=== PATIENT | male | born 1960 | race Caucasian/White ===

== ENCOUNTER → 2017-06-30 | Outpatient (CLI) | payer MEDICARE, MEDICAID, SELFPAY | PROVIDERS: Family Provider Family Medicine; Visit Provider Internal Medicine | DX: I11.9 Hypertensive heart disease without heart failure (principal); I25.10 Atherosclerotic heart disease of native coronary artery without angina pectoris; E78.5 Hyperlipidemia, unspecified | CPT/HCPCS: 36415; 80061; 80076; 93306 ==

== ENCOUNTER → 2017-12-16 14:41 | Outpatient (CLI) | payer MEDICARE, MEDICAID, SELFPAY ==
--- NOTE | 2017-12-16 14:50 | XR_ITS ---
XR shoulder LT min 2V Ordering Physician: Kolton Goyal MD Patient Age: 57 years: Male HISTORY: ITS.REASON: FALL W/INJURY LT SHOULDER AND HIP Left shoulder pain fall one day ago TECHNIQUE: 3 view left shoulder. COMPARISON : FINDINGS No fracture nor dislocation. Glenohumeral relationships appear intact. There is little difference between the AP internal and neck rotation view. Suboptimal variations in positioning but overall humeral head and neck do appear to be intact in these submitted views. The AC joint is intact. With only mild degenerative changes. Scapula & glenoid intact. Upper left chest unremarkable. IMPRESSION: No fracture nor subluxation. Left shoulder intact.
--- NOTE | 2017-12-16 14:51 | XR_ITS ---
XR hip LT 2-3V w/pelvis Ordering Physician: Kolton Goyal MD Patient Age: 57 years: Male HISTORY: ITS.REASON: FALL W/INJURY LT SHOULDER AND HIP Recurrent Fall with pain pelvis TECHNIQUE: AP frog-leg view left hip along with AP pelvis COMPARISON :December 14, [address] pelvis abdomen 02/14/2016 FINDINGS No acute findings at the left hip or pelvis. No change since yesterday AP pelvis. LEFT HIP. 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 There is a large fragment off the cap of the greater trochanter with heterotropic bone/dystrophic calcification seen superior to this old tract. Surgery yesterday. Unchanged.. The left hip joint space may have some mild narrowing at superior outer margins but this is unimpressive. 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 AP PELVIS Right hip is intact satisfactory with with trace hypertrophic ridging superior rim of acetabulum left and right. The AP pelvis appears intact. Sacrum intact. Hypertrophic facet changes L5/S1 bilaterally again partially evident IMPRESSION: ------- AP pelvis, no acute findings. Intact of compared to yesterday's study. Left hip. Stable. Would only question some very minor scant early degenerative changes at hips, but these are equivocal Again the old bone fragment/& hypertrophic bone is noted, superior to the greater trochanter on left.Unchanged since studies from 2016
== END ==
PROVIDERS: PCP Family Medicine; Visit Provider Family Medicine
DX: S79.912A Unspecified injury of left hip, initial encounter (principal); S49.92XA Unspecified injury of left shoulder and upper arm, initial encounter; W19.XXXA Unspecified fall, initial encounter
CPT/HCPCS: 73030; 73502

== ENCOUNTER → 2018-06-27 12:27 | Outpatient (CLI) | payer MEDICARE, MEDICAID, SELFPAY ==
[2018-06-27 14:14] LABS: Alanine Aminotransferase 32 U/L (12-78); Albumin Level 3.7 gm/dL (3.4-5.0); Alkaline Phosphatase 88 U/L (46-116); Aspartate Amino Transferase 14 U/L (15-37); Bilirubin,Direct 0.1 mg/dL (0.0-0.2); Bilirubin,Indirect 0.1 mg/dL (0.0-0.9); Bilirubin,Total 0.2 mg/dL (0.2-1.0); Chol/HDL Ratio 2.2 (1-3.5); Cholesterol 131 mg/dL (140-200); HDL Cholesterol 59 mg/dL (27-67); LDL Cholesterol 60 mg/dL (0-130); Total Protein,Serum 6.9 gm/dL (6.4-8.2); Triglycerides 62 mg/dL (30-200); VLDL Cholesterol 12 mg/dL (0-40)
== END ==
PROVIDERS: Visit Provider Internal Medicine
DX: I25.10 Atherosclerotic heart disease of native coronary artery without angina pectoris (principal)
CPT/HCPCS: 36415; 80061; 80076

== ENCOUNTER → 2019-01-03 06:57 | Outpatient (CLI) | payer MEDICARE, MEDICAID, SELFPAY ==
--- NOTE | 2019-01-03 07:05 | CA_ITS ---
PROCEDURE: 2-D M-mode and color Doppler study INDICATIONS FOR THE TEST: Chest pain COPD Heart Murmur Tobacco Smoking Palpitations Fatigue Syncope Edema HypertensionXDiabetes Mellitus Rheumatic Fever SOBXDOEXXObesityXHyperlipidemiaX Family History HD Additional History CAD TDS OBESITY PATIENT INFORMATION HEIGHT: 66 WEIGHT:219 GENDER: Male B/P:125/78 2-D/M-MODE INTERPRETATION: 2-D MEASUREMENTS OBSERVED VALUES IN CMS Right Ventricular Dimension (RVDd) 3.4 Interventricular Septum (Thickness)(IVsd) 1.0 Left Ventricular Internal Dimensions(LVIDd) 5.0 Left Ventricular Posterior Wall (Thickness)(LVPWd) 1.1 Aortic Root 3.2 Aortic Cusp Separation 2.1 Left Atrial Dimensions (LAD) 3.3 2D 1. Left atrium is mildly enlarged, left ventricle is normal size, mild concentric left ventricular hypertrophy, visually estimated ejection fraction 55% with no regional wall motion abnormality. 2. The right atrium and right ventricle are mildly enlarged with normal contractility. 3. The aortic valve is minimally thickened and calcified. 4. The mitral and tricuspid valve leaflets are minimally thickened. 5. The pulmonic valve is poorly visualized. 6. No significant pericardial effusion noted. DOPPLER INTERROGATION: Doppler interrogation of the aortic, mitral and tricuspid valvular presence of mild mitral and tricuspid regurgitation, tricuspid regurgitation jet velocity is inadequate for calculation of the right ventricular systolic pressure, grade 1 diastolic dysfunction seen without tissue Doppler evidence of raised left atrial pressure. Inferior vena cava is not well visualized. CONCLUSION: 1. Technically difficult study because of the patient's factor and poor acoustic windows 2. Mild biatrial enlargement, normal left ventricular size, mild concentric left ventricular hypertrophy, visually estimated ejection fraction 55% with no regional wall motion abnormality, grade 1 diastolic dysfunction seen without tissue Doppler evidence of raised left atrial pressure. 3. Enlarged right ventricle with normal contractility. 4. Mild mitral and tricuspid regurgitation 5. No significant pericardial effusion noted.
--- NOTE | 2019-01-03 07:05 | NM_ITS ---
CARDIOLITE SPECT MYOCARDIAL PERFUSION LEXISCAN, REST AND STRESS: History: Coronary artery disease, hypertension, hyperlipidemia, shortness of breath Procedure: Patient received a 0.4 mg of intravenous Lexiscan, resting heart rate was 62 bpm resting blood pressure 130/72, with Lexiscan maximum heart rate achieved was 93 bpm is less than 85% of the maximum projected heart rate and a blood pressure was 120/67. With Lexiscan no symptoms recorded. Electrocardiogram: Resting electrocardiogram showed sinus rhythm first degree AV block , with Lexiscan there is less than 1.[address] segment depression noted from the baseline EKG. The EKG portion of the Lexiscan Myoview is nondiagnostic. Cardiac stress and resting SPECT images: Cardiac stress and resting SPECT images were obtained using technetium 99 Myoview 32.0 mCi stress and 10.1 mCi at rest. Gated SPECT further analysis of segmental wall motion and calculation of the ejection fraction also done. Cardiac stress and resting SPECT images show uniform myocardial activity without segmental perfusion abnormality, computer derived ejection fraction is over 65% with no regional wall motion abnormality, right ventricle is normal size and contractility. Conclusion: 1. The EKG portion of the Lexiscan Myoview is nondiagnostic. 2. No scintigraphic evidence of reversible ischemia seen, computer derived ejection fraction is over 65% with no regional wall motion abnormality, right ventricle is normal size and contractility. 3. Normal Lexiscan Myoview study.
--- NOTE | 2019-01-03 07:29 | HMH.ITSHM ---
Current Home Medications as stated by this patient Abelardo Juarez or representative government relations. []LISINOPRIL ATORVASTATIN ASA AMLODIPINE OXCARBAZEPINE LACOSAMIDE CLOBAZAM
== END ==
PROVIDERS: PCP Family Medicine; Visit Provider Internal Medicine
DX: E78.5 Hyperlipidemia, unspecified (principal); I11.9 Hypertensive heart disease without heart failure; I25.10 Atherosclerotic heart disease of native coronary artery without angina pectoris; R06.09 Other forms of dyspnea; R42 Dizziness and giddiness
CPT/HCPCS: 78452; 93017; 93306; A9502; J2785

== ENCOUNTER 2019-05-21 10:13 | Observation (INO) ==
--- NOTE | 2019-05-21 10:20 | Emergency Department Note ---
ED Disposition Clinical Impression: Change in mental status, Acute urinary retention Disposition: Admitted as Observation Condition on Discharge: Fair Instructions: DI for Altered Mental Status Referrals: Kolton Goyal MD [Primary Care Provider] - Time of Disposition: 12:52 - Critical Care Critical Care Time: No Attestation: On 05/21/19, the high probability of a clinically significant, sudden or life threatening deterioration of the following system(s) required my full and direct attention, intervention and personal management. The time I documented below is in addition to time spent performing reported procedures but includes the f eulogiolowing listed in this critical care notation. Medical Decision Making - Medical Records Medical records reviewed: Yes: I reviewed the patient's medical records. - Arnie Inquiry Pt receiving controlled substance: No Arnie was queried for this patient: No Vital Signs: 05/21/19 10:11 Temperature 97.0 F L Temperature Source Oral Pulse Rate [Right Brachial] 69 Respiratory Rate 18 Blood Pressure [Right Arm] 120/75 Blood Pressure Mean [Right Arm] 90 Blood Pressure Source [Right Arm] Automatic Cuff Blood Pressure Position [Right Arm] Sitting 02 Sat by Pulse Oximetry 100 Oxygen Delivery Method Room Air - Lab Data Lab results reviewed: Yes: I reviewed the patient's lab results. Lab Results 05/21/19 10:11: WBC 5.9, RBC 4.28 L, Hgb 13.4 L, Hct 38.7 L, MCV 90.4, MCH 31.3 H, MCHC 34.6, RDW 12.5, Plt Count 297, MPV 7.4, Neut % (Auto) 74.2, Lymph % (Auto) 14.9, [place] % (Auto) 7.9, Eos % (Auto) 2.3, Baso % (Auto) 0.8, Neut # (Auto) 4.4, Lymph # (Auto) 0.9, [place] # (Auto) 0.5, Eos # (Auto) 0.1, Baso # (Auto) 0.0 05/21/19 10:11: Sodium 132 L, Potassium 3.8, Chloride 96 L, Carbon Dioxide 30, Anion Gap 9.8, BUN 16, Creatinine 1.10, Estimated Creat Clear 103, Estimated GFR 68, Est GFR ( Amer) 83, Glucose 104, Calcium 8.5, Troponin I < 0.02 05/21/19 10:11: Lactate 0.6 05/21/19 10:13: ABG pH 7.40, Carboxyhemoglobin 0.3 Result diagrams: 05/21/19 10:11 05/21/19 10:11 Orders (Tests/Meds): ED MEDICATIONS Discontinued Medications Generic Name Dose Route Start Last Admin Trade Name Shubham PRN Reason Stop Dose Admin Sodium Chloride 1,000 mls @ 999 mls/hr 05/21/19 10:30 05/21/19 11:31 Sod Chlor 0.9% 1000ml Bag IV 05/21/19 11:30 999 mls/hr .Q1H1M STEPHENIE Administration ORDERS Category Date Time Status Carbamazepine (Tegretol) Stat Lab 05/21/19 10:11 Received Drug Screen,Urine Stat Lab 05/21/19 10:13 Ordered Liver Panel Stat Lab 05/21/19 10:11 Received Urinalysis and Microscopic Stat Lab 05/21/19 10:15 Ordered Blood Culture Stat Micro 05/21/19 10:11 Received - Radiology Data #2 Image(s): Chest Image Reviewed: Yes I reviewed the patient's radiology results, Yes I reviewed the patient's radiology image Preliminary Findings: Normal/NAD - CT Data CT Scan: Head Time Received: 11:[address] Reviewed: Yes: I have reviewed the patient's CT results, I have viewed the radiologist's interpretation Preliminary Findings: Normal/NAD - ECG Data Tracing #1 ECG initial impression time: 10:10 Ischemic changes: other (no irais ischemia) - Physician Consults Physician Consulted: [facility] Time: 11:47 Reason -: Admission, Pt condition Medical Decision Narrative: Patient will not or cannot give a urine sample for toxicology. He's currently sitting on edge of bed, slightly slurred speech. His mother is encouraging me to place a horn catheter but the patient is awake, alert, sitting of edge of bed refusing consent for catheterization Altered Mental Status HPI - General Chief Complaint: PAIN Stated Complaint: AMS Time Seen by Provider: 05/21/19 10:18 Mode of Arrival: EMS Source of Information: Patient Limitations: No Limitations Description of Symptoms (Recalled from ER Triage Doc. by RN): PT'S SISTER WAS WORRIED BECAUSE SHE COULDN'T ROUSE HIM EASILY THIS MORNING; PT IS A&OX4. GCS 15. STATES HE FELL ASLEEP LAST NIGHT IN HIS CLOTHES ON THE COUCH AND KNOWS HE IS AT THE HOSPITAL. ONLY COMPLAINT IS LEG PAIN. - History of Present Illness HPI narrative: Presents EMS with mental status changes. He appears globally depressed/drug effect? He answers all questions appropriately, albeit slow and with slurred speech. Has history of grand mal seizures, on anti-epileptics - Related Data Home Medications Medication Instructions Recorded Confirmed Clobazam [Onfi] 1 tab PO DAILY 12/15/17 05/21/19 Lacosamide [Vimpat] 1 tab PO BID 12/15/17 05/21/19 OXcarbazepine [Oxcarbazepine] 2 tab PO BID 12/15/17 05/21/19 Atorvastatin Calcium [Atorvastatin 20 mg PO QHS 05/21/19 05/21/19 20mg Tab] Previous Rx's Medication Instructions Recorded aspirin 81 mg chewable tablet 1 tab PO DAILY #90 tab 02/10/18 amlodipine 5 mg tablet 5 mg PO DAILY #90 tab 08/14/18 lisinopril 20 1 tab PO DAILY #90 tab 08/14/18 mg-hydrochlorothiazide 25 mg tablet Allergies Allergy/AdvReac Type Severity Reaction Status Date / Time No Known Allergies Allergy Verified 01/16/19 10:10 [facility] History - Hepatitis A Screen Drug use history?: No High risk sexual behaviors?: No History of sexually transmitted infection?: No Currently employed?: No Childcare worker?: No Do you have indoor plumbing?: Yes Do you have electricity?: Yes Attestation statement:: This patient has been screened for Hepatitis A risk factors. I have reviewed the patient's past medical history: Yes Medical History: Reports:: Coronary Artery Disease, Hyperlipidemia Denies:: Diabetes Mellitus Type 1 Other Surgeries: Yes: No Previous Surgery - Social History Smoking Status: Never smoker Alcohol Intake: never Substance Use Type: denies use Occupational Status: other ROS Obtained: Yes All systems reviewed & no additional complaints - Constitutional Constitutional: Denies fever(s), Reports lethargy, Reports weakness - Cardiovascular Cardiovascular: Denies chest pain, Denies diaphoresis, Denies dyspnea - Respiratory Respiratory: No chest congestion, No cough, No dyspnea - Gastrointestinal Gastrointestingal: Denies: abdominal pain - Musculoskeletal Musculoskeletal: Denies joint pain, Denies joint stiffness, Denies joint swelling, Reports muscle aches, Reports other (pain in right anterior thigh, prox third of femur. ) - Integumentary/Breasts Skin/Breast: Denies rash, Denies skin pain - Neurologic Neurologic: Reports abnormal speech, Denies headache(s), Denies memory loss, Denies numbness Physical Exam - General General appearance: in no apparent distress, other (globally sedated, maintaining his airway) - Eye Eye exam: Present: normal appearance, PERRL, EOMI - ENT ENT exam: Present: normal exam, normal oropharynx, mucous membranes moist, TM's normal bilaterally, normal external ear exam - Neck Neck exam: Present: normal inspection, full ROM, trachea midline. Absent: meningismus, lymphadenopathy - Respiratory Respiratory exam: Present: normal lung sounds bilaterally. Absent: respiratory distress - Cardiovascular Cardiovascular exam: Present: regular rate, normal rhythm. Absent: JVD - Abdominal Exam Abdominal exam: Present: soft, normal bowel sounds. Absent: distention, tenderness, guarding - Extremities Exam Extremities exam: Present: normal inspection, full ROM, normal capillary refill. Absent: calf tenderness - Back Exam Back exam: Present: normal inspection. Absent: tenderness - Neurological Exam Neurological exam: Present: alert, oriented X3 - Skin Skin exam: Present: warm, dry, intact, normal color
[2019-05-21 10:26] LABS: Basophils % 0.8 % (0.1-2.0); Eosinophils # 0.1 K/mm3 (0.0-0.4); Eosinophils % 2.3 % (0.1-12.0); Hematocrit 38.7 % (42.0-52.0); Hemoglobin 13.4 g/dL (14.1-18.0); Lymphocytes # 0.9 K/mm3 (0.7-4.5); Lymphocytes % 14.9 % (10-50); Mean Corpuscular HGB Conc 34.6 g/dL (31.8-35.4); Mean Corpuscular Volume 90.4 fl (80-94); Mean Platelet Volume 7.4 fl (7.4-10.4); Monocytes # 0.5 K/mm3 (0.1-1.0); Monocytes % 7.9 % (1.7-9.3); Neutrophils # 4.4 K/mm3 (1.8-7.8); Neutrophils % 74.2 % (37.0-80.0); Platelet Count 297 K/mm3 (142-424); Red Blood Count 4.28 M/mm3 (4.60-6.20); Red Cell Distribution Width 12.5 % (11.5-17.5); White Blood Count 5.9 K/mm3 (4.8-10.8)
[2019-05-21 10:39] LABS: Anion Gap 9.8 mEq/L (5-15); Blood Urea Nitrogen 16 mg/dL (7-18); Calcium 8.5 mg/dL (8.5-10.1); Carbon Dioxide 30 mmol/L (21.0-32.0); Chloride 96 mmol/L (98-107); Glucose 104 mg/dL (74-106); Sodium 132 mmol/L (136-145)
[2019-05-21 10:48] LABS: ABG PH 7.4 mmol/L (7.35-7.45); Carboxyhemoglobin 0.3 (0.0-5.0)
[2019-05-21 13:11] LABS: Albumin Level 3.5 gm/dL (3.4-5.0); Bilirubin,Direct 0.1 mg/dL (0.0-0.2); Bilirubin,Indirect 0.2 mg/dL (0.0-0.9); Bilirubin,Total 0.3 mg/dL (0.2-1.0); Carbamazepine (Tegretol) 0.3 ug/ml (4.0-12.0); Total Protein,Serum 6.8 gm/dL (6.4-8.2)
--- NOTE | 2019-05-21 13:47 | Electrocardiograph Report ---
APPROVED REPORT Exam: Resting ECG HR:72 bpm ECG Measurements Heart Rate 72 AXES QRSd 92 QRS 3 QT 362 T49 QTc 396 <Conclusion> Sinus Rhythm Abnormal ECG Electronically signed by : Tulio Nunez, 05/21/2019 13:47:00
--- NOTE | 2019-05-21 14:15 | Pharmacy Consult Notes ---
[facility] [place] Pharmacy VTE Monitoring - Patient Demographics Admission date: 05/21/19 Report Date: 05/21/19 Time: 14:15 Allergies/Adverse Reactions: Patient Allergies No Known Allergies Allergy (Verified 01/16/19 10:10) Height: 1.65 m Weight: 93.525 kg Patient Problems: Current Active Problems Change in mental status (Acute) Acute urinary retention (Acute) - VTE Risk Labs: VTE Related Lab Results Hgb 13.4 g/dL (14.1-18.0) L 05/21/19 10:11 Hct 38.7 % (42.0-52.0) L 05/21/19 10:11 Plt Count 297 K/mm3 (142-424) 05/21/19 10:11 BUN 16 mg/dL (7-18) 05/21/19 10:11 Creatinine 1.10 mg/dL (0.70-1.30) 05/21/19 10:11 Estimated Creat Clear 103 mL/min (50-200) 05/21/19 10:11 - Prophylaxis VTE Prophylaxis Ordered?: Yes Types of VTE Prophylaxis: TEDS Knee High Location of Applied Device: Bilateral Lower Extremeties
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
[2019-05-21 16:17] LABS: Microscopic, Urine URINE MICROSCOPIC (MICROSCOPIC)
[2019-05-21 16:21] LABS: Appearance,Urine CLEAR (Clear); Bilirubin,Urine Negative (Negative); Blood, Urine Negative (Negative); Color,Urine YELLOW (Yellow); Glucose,Urine (UA) Negative (Negative); Ketones,Urine Negative (Negative); Leukocyte Esterase,Urine Negative (Negative); Protein,Urine Negative (Negative); Specific Gravity, Urine >= 1.030 (1.005-1.030); Urobilinogen,Urine 0.2 EU/dl (0.2)
[2019-05-21 16:30] LABS: Amphetamine/Metha Screen,Urine Negative ng/mL (<1000); Barbiturates Screen,Urine Negative ng/mL (<200); Benzodiazepines Screen,Urine Positive ng/mL (<200); Cannabinoid Screen,Urine Negative ng/mL (<50); Cocaine Screen,Urine Negative ng/mL (<300); Methadone Screen,Urine Negative ng/mL (<300); Opiate Screen,Urine Negative ng/mL (<300); Phencyclidine Screen,Urine Negative ng/mL (<25)
[2019-05-21 17:07] LABS: RBC,Urine Occasional #/hpf (0-3)
[2019-05-21 17:08] LABS: Amorphous Sediment,Urine 1+ /lpf; Mucus,Urine 2+ /lpf
[2019-05-22 06:29] LABS: Anion Gap 10.6 mEq/L (5-15)
[2019-05-22 07:44] LABS: Basophils % 0.7 % (0.1-2.0); Eosinophils # 0.2 K/mm3 (0.0-0.4); Eosinophils % 4.4 % (0.1-12.0); Hematocrit 35.7 % (42.0-52.0); Hemoglobin 12.8 g/dL (14.1-18.0); Lymphocytes # 1.1 K/mm3 (0.7-4.5); Lymphocytes % 21.1 % (10-50); Mean Corpuscular HGB Conc 35.7 g/dL (31.8-35.4); Mean Corpuscular Volume 89.6 fl (80-94); Monocytes # 0.5 K/mm3 (0.1-1.0); Monocytes % 9.6 % (1.7-9.3); Neutrophils # 3.3 K/mm3 (1.8-7.8); Neutrophils % 64.1 % (37.0-80.0); Platelet Count 202 K/mm3 (142-424); Red Blood Count 3.98 M/mm3 (4.60-6.20); Red Cell Distribution Width 12.5 % (11.5-17.5); White Blood Count 5.1 K/mm3 (4.8-10.8)
[2019-05-22 07:55] LABS: Calcium 7.9 mg/dL (8.5-10.1)
--- NOTE | 2019-05-22 08:37 | Progress Note ---
<Loretta Irvin - Last Filed: 05/22/19 08:47> Internal Medicine - PN: Subj *Date: 05/22/19 *Time: 08:47 Interval history: Patient states he is having no problems. He does say that he has ongoing long- term pain in his right upper leg. X-rays yesterday were noted to be negative. He ambulates in the room with his walker. He states he slept well. He denies chest pain and shortness of breath. Exam Vital signs and Labs for Last 24 Hours: Temp Pulse Resp BP Pulse Ox 97.9 F 64 17 101/62 L 99 05/22/19 07:47 05/22/19 07:47 05/22/19 07:47 05/22/19 07:47 05/22/19 07:47 Laboratory Results - last 24 hr 05/21/19 10:03: POC Glucose 109 05/21/19 10:11: WBC 5.9, RBC 4.28 L, Hgb 13.4 L, Hct 38.7 L, MCV 90.4, MCH 31.3 H, MCHC 34.6, RDW 12.5, Plt Count 297, MPV 7.4, Neut % (Auto) 74.2, Lymph % (Auto) 14.9, [place] % (Auto) 7.9, Eos % (Auto) 2.3, Baso % (Auto) 0.8, Neut # (Auto) 4.4, Lymph # (Auto) 0.9, [place] # (Auto) 0.5, Eos # (Auto) 0.1, Baso # (Auto) 0.0 05/21/19 10:11: Sodium 132 L, Potassium 3.8, Chloride 96 L, Carbon Dioxide 30, Anion Gap 9.8, BUN 16, Creatinine 1.10, Estimated Creat Clear 103, Estimated GFR 68, Est GFR ( Amer) 83, Glucose 104, Calcium 8.5, Troponin I < 0.02 05/21/19 10:11: Lactate 0.6 05/21/19 10:11: Total Bilirubin 0.3, Direct Bilirubin 0.1, Indirect Bilirubin 0.2, AST 28, ALT 37, Alkaline Phosphatase 88, Total Protein 6.8, Albumin 3.5, Carbamazepine 0.3 L 05/21/19 10:13: ABG pH 7.40, Carboxyhemoglobin 0.3 05/21/19 16:14: Urine Opiates Screen Negative, Urine Methadone Screen Negative, Ur Barbituates Screen Negative, Ur Phencyclidine Scrn Negative, Ur Amphetamines Screen Negative, U Benzodiazepines Scrn Positive H, Urine Cocaine Screen N egative, U Marijuana (THC) Screen Negative 05/21/19 16:14: Urine Color Yellow, Urine Appearance Clear, Urine pH 6.0, Ur Specific [place] >= 1.030, Urine Protein Negative, Urine Glucose (UA) Negative, Urine Ketones Negative, Urine Blood Negative, Urine Nitrate Negative, Urine Bilirubin Negative, Urine Urobilinogen 0.2, Ur Leukocyte Esterase Negative, Urine RBC Occasional, Urine WBC 3-5, Ur Squamous Epith Cells 3-5, Amorphous Sediment 1+, Urine Mucus 2+ 05/22/19 05:45: WBC 5.1, RBC 3.98 L, Hgb 12.8 L, Hct 35.7 L, MCV 89.6, MCH 32.0 H, MCHC 35.7 H, RDW 12.5, Plt Count 202 D, MPV 10.0, Neut % (Auto) 64.1, Lymph % (Auto) 21.1, [place] % (Auto) 9.6 H, Eos % (Auto) 4.4, Baso % (Auto) 0.7, Neut # (Auto) 3.3, Lymph # (Auto) 1.1, [place] # (Auto) 0.5, Eos # (Auto) 0.2, Baso # (Au to) 0.0 05/22/19 05:45: Sodium 129 L, Potassium 3.6, Chloride 97 L, Carbon Dioxide 25, Anion Gap 10.6, BUN 12, Creatinine 0.93, Estimated Creat Clear 114, Estimated GFR 83, Est GFR ( Amer) 100 D, Glucose 85, Calcium 7.9 L, Total Creatine Kinase 207 I & O for Last 24 hours: Intake & Output 05/19/19 05/20/19 05/21/19 05/22/19 11:59 11:59 11:59 11:59 Intake Total 2461 / 2461 Output Total 250 / 250 Balance 2211 / 2211 Weight 225 lb 211 lb 1 oz - Constitutional no acute distress Comments: Observed walking to the bathroom with his walker. - *Routine Respiratory Exam Present: CTA bilaterally (Anteriorly and posteriorly) - *Routine Cardiovascular Exam Present: RRR - *Routine Abdominal Exam Present: soft, normoactive bowel sounds. Absent: tenderness - *Routine Extremities Exam Absent: edema, calf tenderness - *Routine Neurological Exam Present: alert Responses remain slow. Speech is slow but clear. Assessment and Plan (1) Change in mental status Status: Acute Category: Medical Code(s): R41.82 - Altered mental status, unspecified (2) Seizure disorder Status: Chronic Category: Medical Code(s): G40.909 - Epilepsy, unspecified, not intractable, without status epilepticus (3) Hypertension Status: Chronic Category: Medical Code(s): I10 - Essential (primary) hypertension (4) ASCVD (arteriosclerotic cardiovascular disease) Status: Chronic Category: Medical Code(s): I25.10 - Atherosclerotic heart disease of [place] coronary artery without angina pectoris (5) GERD (gastroesophageal reflux disease) Status: Chronic Category: Medical Code(s): K21.9 - Gastro-esophageal reflux disease without esophagitis - Assessment and plan all Dx Assessment and Plan for all problems:: Patient has been stable and was discharged to home. Sister will continue to to give meds at home. <Kolton Goyal - Last Filed: 05/22/19 13:49> Internal Medicine - PN: Subj *Date: 05/22/19 *Time: 13:47 Exam Vital signs and Labs for Last 24 Hours: Temp Pulse Resp BP Pulse Ox 97.9 F 64 17 101/62 L 99 05/22/19 07:47 05/22/19 07:47 05/22/19 07:47 05/22/19 07:47 05/22/19 07:47 Laboratory Results - last 24 hr 05/21/19 10:03: POC Glucose 109 05/21/19 16:14: Urine Opiates Screen Negative, Urine Methadone Screen Negative, Ur Barbituates Screen Negative, Ur Phencyclidine Scrn Negative, Ur Amphetamines Screen Negative, U Benzodiazepines Scrn Positive H, Urine Cocaine Screen Negative, U Marijuana (THC) Screen Negative 05/21/19 16:14: Urine Color Yellow, Urine Appearance Clear, Urine pH 6.0, Ur Specific [place] >= 1.030, Urine Protein Negative, Urine Glucose (UA) Negative, Urine Ketones Negative, Urine Blood Negative, Urine Nitrate Negative, Urine Bilirubin Negative, Urine Urobilinogen 0.2, Ur Leukocyte Esterase Negative, Urine RBC Occasional, Urine WBC 3-5, Ur Squamous Epith Cells 3-5, Amorphous Sediment 1+, Urine Mucus 2+ 05/22/19 05:45: WBC 5.1, RBC 3.98 L, Hgb 12.8 L, Hct 35.7 L, MCV 89.6, MCH 32.0 H, MCHC 35.7 H, RDW 12.5, Plt Count 202 D, MPV 10.0, Neut % (Auto) 64.1, Lymph % (Auto) 21.1, [place] % (Auto) 9.6 H, Eos % (Auto) 4.4, Baso % (Auto) 0.7, Neut # (Auto) 3.3, Lymph # (Auto) 1.1, [place] # (Auto) 0.5, Eos # (Auto) 0.2, Baso # (Auto) 0.0 05/22/19 05:45: Sodium 129 L, Potassium 3.6, Chloride 97 L, Carbon Dioxide 25, Anion Gap 10.6, BUN 12, Creatinine 0.93, Estimated Creat Clear 114, Estimated GFR 83, Est GFR ( Amer) 100 D, Glucose 85, Calcium 7.9 L, Total Creatine Kinase 207 I & O for Last 24 hours: Intake & Output 05/20/19 05/21/19 05/22/19 05/23/19 11:59 11:59 11:59 11:59 Intake Total 2461 / 2461 Output Total 250 / 250 Balance 2211 / 2211 Weight 225 lb 211 lb 1 oz Assessment and Plan (1) Change in mental status Status: Acute Category: Medical Code(s): R41.82 - Altered mental status, unspecified (2) Seizure disorder Status: Chronic Category: Medical Code(s): G40.909 - Epilepsy, unspecified, not intractable, without status epilepticus (3) Hypertension Status: Chronic Category: Medical Code(s): I10 - Essential (primary) hy pertension (4) ASCVD (arteriosclerotic cardiovascular disease) Status: Chronic Category: Medical Code(s): I25.10 - Atherosclerotic heart disease of [place] coronary artery without angina pectoris (5) GERD (gastroesophageal reflux disease) Status: Chronic Category: Medical Code(s): K21.9 - Gastro-esophageal reflux disease without esophagitis - Assessment and plan all Dx Assessment and Plan for all problems:: Patient seen and examined. He is back to his baseline mental status. It is likely he had a seizure yesterday and his altered mental status represented a post-ictal state. Will plan to draw a trough Oxcarbamazepine level as an outpt
--- NOTE | 2019-05-23 11:07 | Discharge Summary ---
General - General Admission date:: 05/21/19 <Kolton Goyal - 05/27/19 22:57> 05/21/19 <Loretta Irvin - 05/23/19 11:07> Discharge date: 05/23/19 <BrandeeLoretta - 05/23/19 11:07> HPI HPI: Mr. Juarez is a 58-year-old male with a history of seizure disorder, ASCVD, GERD and hypertension who presented to [facility] emergency room via EMS. His sister was present and delivered most of the history. She stated that she found him poorly responsive on the couch in his home. She called EMS who also had difficulty with arousing him. When they did get him to speak, his speech was slow and slurred. When talking with patient he stated that he got up, ate breakfast this morning and then vomited. He then laid down on the couch. He previously had said that he slept in his clothes throughout the night.. With Evaluation in the emergency room CT of the head was normal. Patient was unable to void for urine screen. He was given a liter of IV fluids. He was admitted for further evaluation and treatment. At time of this exam patient answers all questions but was very slow with his responses. Speech was clear but slow as well. He denied chest pain and shortness of breath as well as nausea. <Loretta Irvin - 05/23/19 11:07> Hospital Course Hospital Course: During the course of the patient's stay he was placed in seizure precautions. His heart rhythm was stable with a normal sinus rhythm and sinus bradycardia. He ambulated to the bathroom with assistance. He was continent of stool and urine. He had no complaints of chest pain or shortness of breath. He did continue to complain of the right upper leg discomfort. He ate well. His speech became more clear and he was able to answer questions more readily. On 05/22/2019 patient was stable to be discharged. He was to follow-up for repeat carbamazepine level in the p.m. at the [facility] office. He was also to follow-up with Dr. Goyal in 2 days. His sister planned to check on him daily. She also planned to discuss his activitiesand events with friends at the [facility]. <Loretta Irvin - 05/23/19 11:20> Objective Vital signs: Temp Pulse Resp BP Pulse Ox 97.9 F 64 17 101/62 L 99 05/22/19 07:47 05/22/19 07:47 05/22/19 07:47 05/22/19 07:47 05/22/19 07:47 <Kolton Goyal - 05/27/19 22:57> Temp Pulse Resp BP Pulse Ox 97.9 F 64 17 101/62 L 99 05/22/19 07:47 05/22/19 07:47 05/22/19 07:47 05/22/19 07:47 05/22/19 07:47 <Loretta Irvin - 05/23/19 11:07> Narrative: Exam Vital signs and Labs for Last 24 Hours: Temp Pulse Resp BP Pulse Ox 97.9 F 64 17 101/62 L 99 05/22/19 07:47 05/22/19 07:47 05/22/19 07:47 05/22/19 07:47 05/22/19 07:47 Laboratory Results - last 24 hr 05/21/19 10:03: POC Glucose 109 05/21/19 10:11: WBC 5.9, RBC 4.28 L, Hgb 13.4 L, Hct 38.7 L, MCV 90.4, MCH 31.3 H, MCHC 34.6, RDW 12.5, Plt Count 297, MPV 7.4, Neut % (Auto) 74.2, Lymph % (Auto) 14.9, [place] % (Auto) 7.9, Eos % (Auto) 2.3, Baso % (Auto) 0.8, Neut # (Auto) 4.4, Lymph # (Auto) 0.9, [place] # (Auto) 0.5, Eos # (Auto) 0.1, Baso # (Auto) 0.0 05/21/19 10:11: Sodium 132 L, Potassium 3.8, Chloride 96 L, Carbon Dioxide 30, Anion Gap 9.8, BUN 16, Creatinine 1.10, Estimated Creat Clear 103, Estimated GFR 68, Est GFR ( Amer) 83, Glucose 104, Calcium 8.5, Troponin I < 0.02 05/21/19 10:11: Lactate 0.6 05/21/19 10:11: Total Bilirubin 0.3, Direct Bilirubin 0.1, Indirect Bilirubin 0.2, AST 28, ALT 37, Alkaline Phosphatase 88, Total Protein 6.8, Albumin 3.5, Carbamazepine 0.3 L 05/21/19 10:13: ABG pH 7.40, Carboxyhemoglobin 0.3 05/21/19 16:14: Urine Opiates Screen Negative, Urine Methadone Screen Negative, Ur Barbituates Screen Negative, Ur Phencyclidine Scrn Negative, Ur Amphetamines Screen Negative, U Benzodiazepines Scrn Positive H, Urine Cocaine Screen Negative, U Marijuana (THC) Screen Negative 05/21/19 16:14: Urine Color Yellow, Urine Appearance Clear, Urine pH 6.0, Ur Specific [place] >= 1.030, Urine Protein Negative, Urine Glucose (UA) Negative, Urine Ketones Negative, Urine Blood Negative, Urine Nitrate Negative, Urine Bilirubin Negative, Urine Urobilinogen 0.2, Ur Leukocyte Esterase Negative, Urine RBC Occasional, Urine WBC 3-5, Ur Squamous Epith Cells 3-5, Amorphous Sediment 1+, Urine Mucus 2+ 05/22/19 05:45: WBC 5.1, RBC 3.98 L, Hgb 12.8 L, Hct 35.7 L, MCV 89.6, MCH 32.0 H, MCHC 35.7 H, RDW 12.5, Plt Count 202 D, MPV 10.0, Neut % (Auto) 64.1, Lymph % (Auto) 21.1, [place] % (Auto) 9.6 H, Eos % (Auto) 4.4, Baso % (Auto) 0.7, Neut # (Auto) 3.3, Lymph # (Auto) 1.1, [place] # (Auto) 0.5, Eos # (Auto) 0.2, Baso # (Auto) 0.0 05/22/19 05:45: Sodium 129 L, Potassium 3.6, Chloride 97 L, Carbon Dioxide 25, Anion Gap 10.6, BUN 12, Creatinine 0.93, Estimated Creat Clear 114, Estimated GFR 83, Est GFR ( Amer) 100 D, Glucose 85, Calcium 7.9 L, Total Creatine Kinase 207 I & O for Last 24 hours: Intake & Output 05/19/19 05/20/19 05/21/19 05/22/19 11:59 11:59 11:59 11:59 Intake Total 2461 / 2461 Output Total 250 / 250 Balance 2211 / 2211 Weight 225 lb 211 lb 1 oz - Constitutional no acute distress Comments: Observed walking to the bathroom with his walker. - *Routine Respiratory Exam Present: CTA bilaterally (Anteriorly and posteriorly) - *Routine Cardiovascular Exam Present: RRR - *Routine Abdominal Exam Present: soft, normoactive bowel sounds. Absent: tenderness - *Routine Extremities Exam Absent: edema, calf tenderness - *Routine Neurological Exam Present: alert Responses remain slow. Speech is slow but clear. <Loretta Irvin - 05/23/19 11:20> Results Completed studies during hospitalization [Text1]: 05/21/2019 CT of the head IMPRESSION: No acute intracranial finding 05/21/2019 chest x-ray IMPRESSION: No acute findings. 05/21/2019 right femur x-ray IMPRESSION: Mild osteoarthritis of the right hip. Prior total knee replacement otherwise negative right femur <Loretta Irvin - 05/23/19 11:20> Labs on day of discharge: Preliminary micro results at discharge 05/21/19 10:11 Blood Culture - Preliminary Blood NO GROWTH AFTER 48 HOURS 05/21/19 10:11 Blood Culture - Preliminary Blood NO GROWTH AFTER 48 HOURS <Loretta Irvin - 05/23/19 11:07> DS: Diagnosis - Discharge Diagnosis (1) Change in mental status Status: Acute (2) Seizure disorder Status: Chronic (3) Hypertension Status: Chronic (4) ASCVD (arteriosclerotic cardiovascular disease) Status: Chronic (5) GERD (gastroesophageal reflux disease) Status: Chronic <Kolton Goyal - 05/27/19 22:57> (1) Change in mental status Status: Acute (2) Seizure disorder Status: Chronic (3) Hypertension Status: Chronic (4) ASCVD (arteriosclerotic cardiovascular disease) Status: Chronic (5) GERD (gastroesophageal reflux disease) Status: Chronic <Loretta Irvin - 05/23/19 11:08> Discharge Plan - Patient Discharge Instructions ACTIVITY: Continue current activity <Loretta Irvin - 05/23/19 11:07> DIET: continue same diet <Loretta Irvin 05/23/19 11:07> Patient Instructions: Seizure Disorder -- Adult, DI for Altered Mental Status <Kolton Goyal - 05/27/19 22:57> Forms: <Kolton Goyal - 05/27/19 22:57> - Follow up Plan Follow up with: Kolton Goyal MD [Primary Care Provider] - 2 days (in [facility] sister already made appt for 05/24/19 at 1130am) <Kolton Goyal - 05/27/19 22:57> Disposition: Home, Self-Care <Kolton Goyal - 05/27/19 22:57> Home Medications: Home Medications Medication Instructions Recorded Confirmed Type Clobazam [Onfi] 10 mg PO 1700 12/15/17 05/21/19 History Lacosamide [Vimpat] 200 mg PO 0500,1700 12/15/17 05/21/19 History Amlodipine Besylate [Amlodipine 5 mg PO 0500 05/21/19 05/21/19 History 5mg tab] Aspirin [Aspir 81] 81 mg PO 0500 05/21/19 05/21/19 History Atorvastatin Calcium [Atorvastatin 20 mg PO 1700 05/21/19 05/21/19 History 20mg Tab] Lisinopril/Hydrochlorothiazide 1 tab PO 0500 05/21/19 05/21/19 History [Lisinopril-Hctz 20-25 mg Tab] OXcarbazepine [Oxcarbazepine] 600 mg PO 0500,1700 05/21/19 05/21/19 History <Kolton Goyal - 05/27/19 22:57> Prescriptions/Medication Reconciliation: Continued Lacosamide [Vimpat] 200 mg PO 0500,1700 Clobazam [Onfi] 10 mg PO 1700 Atorvastatin Calcium [Atorvastatin 20mg Tab] 20 mg PO 1700 OXcarbazepine [Oxcarbazepine] 600 mg PO 0500,1700 Amlodipine Besylate [Amlodipine 5mg tab] 5 mg PO 0500 Lisinopril/Hydrochlorothiazide [Lisinopril-Hctz 20-25 mg Tab] 1 tab PO 0500 Aspirin [Aspir 81] 81 mg PO 0500 <Kolton Goyal - 05/27/19 22:57> - Problem Reconciliation Problems Reviewed?: Yes <Kolton Goyal - 05/27/19 22:57> Yes <Loretta Irvin - 05/23/19 11:20> - Additional Information Additional Information: Patient seen and examined. To clarify the above note, he was to follow-up for an outpatient trough oxcarbazepine level. <Kolton Goyal - 05/27/19 22:57>
== END 2019-05-22 09:20 | disposition home or self-care (01) ==
LOC: ER 10:13 → 2ND 10:13
PROVIDERS: ADMIT Family Medicine; ATTEND Family Medicine
CPT/HCPCS: 36415; 70450; 71010; 71045; 73552; 80048; 80076; 80156; 80305; 81001; 82375; 82550; 82962; 83605; 84484; 85025; 87040; 93005; 96365; 99285; G0378; J2405

== ENCOUNTER 2020-06-23 16:29 | Emergency (ER) | payer MEDICARE, OTHER, SELFPAY ==
[2020-06-23 16:31] VITALS: BP 147/82; PULSE 97; RESP 20; TEMP 37.4; O2SAT 96; BMI 37.4
--- NOTE | 2020-06-23 17:00 | PC.NURSE ---
spoke to Poison control, pt is to be watched until 6:30, 4 hours after the dose which was at 2:30. Pt is stable at this time
--- NOTE | 2020-06-23 17:08 | XR_ITS ---
PROCEDURE: XR FEMUR RT 2V CLINICAL INDICATION: pain COMPARISON: CR XR FEMUR RT 2V from 05/21/2019 FINDINGS: No fracture or dislocation. No lytic or blastic change. There is normal mineralization. There are mild osteoarthritic changes of the hip. Other findings:None. There is a total knee prosthesis which is in good alignment. IMPRESSION: No acute findings. Dictated by: Eran Harris MD 06/23/2020 18:20 Eran Harris MD in [place] 06/23/2020 18:20
--- NOTE | 2020-06-23 17:20 | ECG_ITS ---
APPROVED REPORT Exam: Resting ECG HR:86 bpm ECG Measurements Heart Rate 86 AXES MO 204 P 49 QRSd 82 QRS -15 QT 348 T 36 QTc 416 Conclusion Normal sinus rhythm Normal ECG Electronically signed by : Raul Yousif, 06/24/2020 08:53:37
[2020-06-23 17:23] VITALS: BP 117/72; PULSE 85; RESP 18; O2SAT 94
[2020-06-23 17:33] VITALS: BP 123/84; PULSE 82; RESP 18; O2SAT 96
[2020-06-23 17:52] VITALS: BP 123/84; PULSE 80; RESP 16; O2SAT 97
--- NOTE | 2020-06-23 18:11 | HMH.EDGENADL ---
ED Disposition Clinical Impression: Accidental drug ingestion Qualifiers: Encounter type: initial encounter Qualified Code(s): T50.901A - Poisoning by unspecified drugs, medicaments and biological substances, accidental (unintentional), initial encounter Disposition: Home, Self-Care Condition on Discharge: Good Additional Instructions: You can restart your normal medications tomorrow morning. Referrals: Kolton Goyal MD [Primary Care Provider] - - Critical Care Critical Care Time: No Attestation: On 06/23/20, the high probability of a clinically significant, sudden or life threatening deterioration of the following system(s) required my full and direct attention, intervention and personal management. The time I documented below is in addition to time spent performing reported procedures but includes the following listed in this critical care notation. Medical Decision Making - Medical Records Medical records reviewed: Yes: I reviewed the patient's medical records. - Arnie Inquiry Pt receiving controlled substance: No Vital Signs: 06/23/20 16:31 06/23/20 17:23 06/23/20 17:33 Temperature 99.3 F Temperature Source Oral Pulse Rate Pulse Rate [Left Radial] 97 H 85 82 Respiratory Rate 20 18 18 Blood Pressure Blood Pressure [Right Arm] 147/82 H 117/72 123/84 Blood Pressure Mean [Right Arm] 103 87 97 Blood Pressure Source Blood Pressure Source [Right Arm] Automatic Cuff Blood Pressure Position Blood Pressure Position [Right Arm] Sitting Sitting 02 Sat by Pulse Oximetry 96 94 L 96 Oxygen Delivery Method Room Air 06/23/20 17:52 06/23/20 18:19 06/23/20 18:56 Temperature 98.2 F Temperature Source Oral Pulse Rate 78 Pulse Rate [Left Radial] 80 79 Respiratory Rate 16 16 Blood Pressure 120/70 Blood Pressure [Right Arm] 123/84 121/75 Blood Pressure Mean [Right Arm] 97 90 Blood Pressure Source Automatic Cuff Blood Pressure Source [Right Arm] Automatic Cuff Automatic Cuff Blood Pressure Position Sitting Blood Pressure Position [Right Arm] Sitting Sitting 02 Sat by Pulse Oximetry 97 94 L Oxygen Delivery Method Room Air Room Air Medical Decision Narrative: The patient is a 59 year old male who presents to the ED after accidental overdose. Patient arrives awake, alert, neurologically intact. He has somewhat slurred speech - no facial droop. Suspect this is likely from his accidental overdose based on timing of presentation of symptoms. EKG shows no ischemic, intervals including QRS WNL. He took a total of 600 mg oxcarbazipime and 400 mg vimpat at 2:30pm. Poison control was contacted who recommended observation 4 hours after ingestion. Patient was observed with improvement in symptoms, he was able to ambulate and tolerate PO. General Adult HPI - General Chief complaint: Overdose Stated complaint: took OD of Medication Time Seen by Provider: 06/23/20 16:32 Mode of Arrival: Wheelchair Limitations: No Limitations Description of Symptoms (Recalled from ER Triage Doc. by RN): review manager states that pt took an extra dose of his seizure medicine (Vimpat 200mg and oxycarbazepine 300mg). Per child care associate teacher pt seems like he drunk and that is not his norm. - History of Present Illness HPI narrative: The patient is a 59 year old male with a history of seizures who presents to the ED with accidental overdose. He is prescribed 300 mg oxcarbazipime and 200 mg vimpat both BID. He accidentally took an extra dose of both around 230 (so a dose of 300 mg oxcarb and 200 mg vimpat at 5 am, them 600 mg oxcarb and 400 mg vimpat at 230 pm). His thought he was acting drunk and drowsy so she brought him in. He did not take anything else. patient denies symptoms except he feels his speech is off . - Related Data Home Medications Medication Instructions Recorded Confirmed Lacosamide [Vimpat] 200 mg PO 0500,1700 18 01/15/20 cloBAZam [Onfi] 10 mg PO 1700 12/15/17 01/15/20
[2020-06-23 18:19] VITALS: BP 121/75; PULSE 79; O2SAT 94
[2020-06-23 18:56] VITALS: BP 120/70; PULSE 78; RESP 16; TEMP 36.8; O2SAT 98
== END 2020-06-23 18:58 | disposition home or self-care (01) ==
PROVIDERS: Emergency Provider Emergency Medicine; PCP Family Medicine
DX: T42.1X1A Poisoning by iminostilbenes, accidental (unintentional), initial encounter (principal); R41.82 Altered mental status, unspecified; Y92.019 Unspecified place in single-family (private) house as the place of occurrence of the external cause; I10 Essential (primary) hypertension; K21.9 Gastro-esophageal reflux disease without esophagitis; E78.5 Hyperlipidemia, unspecified; Z79.899 Other long term (current) drug therapy
CPT/HCPCS: 73552; 93005; 99283

== ENCOUNTER 2020-12-15 11:48 | Emergency (ER) | payer MEDICARE, OTHER, SELFPAY ==
[2020-12-15 11:49] VITALS: BP 111/71; PULSE 95; RESP 20; TEMP 36.4; O2SAT 98; BMI 37.4
--- NOTE | 2020-12-15 11:55 | CT_ITS ---
PROCEDURE: CT HEAD/BRAIN WO CON CLINICAL INDICATION: fall Head injury with pain COMPARISON: CT CT HEAD/BRAIN WO CON from 05/21/2019 TECHNIQUE: Axial images obtained. All CT scans at the facility use one or more dose reduction, viz: automated exposure control, ma/kV adjustment per patient size (including targeted exams where dose is matched to indication, i.e. head), or iterative reconstruction technique. FINDINGS: No midline shift, mass effect, intracranial hemorrhage, hydrocephalus, or extra-axial fluid collection is evident. There is generalized cerebral atrophy. This is slightly greater on the right compared to the left and had a similar appearance on the previous exam. Cerebellar and vermian atrophy also noted. There is mild soft tissue swelling in the left parietal region of the scalp. No acute calvarial fracture. There are 2 metallic densities in the lateral right periorbital region unchanged IMPRESSION: No acute intracranial finding Small left parietal scalp hematoma Dictated by: Eran Harris MD 12/15/2020 12:30 Eran Harris MD in [facility] 12/15/2020 12:30
--- NOTE | 2020-12-15 11:55 | XR_ITS ---
PROCEDURE: XR FOOT LT 2V CLINICAL INDICATION: fall Pain and abrasion COMPARISON: No exams were available for comparison FINDINGS: No fracture or dislocation. No lytic or blastic change. There is normal mineralization. Osteoarthritic changes 1st MTP joint and 1st interphalangeal joint. IMPRESSION: No acute findings. Dictated by: Eran Harris MD 12/15/2020 12:35 Eran Harris MD in [facility] 12/15/2020 12:35
--- NOTE | 2020-12-15 11:55 | XR_ITS ---
PROCEDURE: XR KNEE LT 3V CLINICAL INDICATION: fall Pain COMPARISON: CR [id number] KNEE-LIMITED 2 VIEWS-RT from 10/22/2013 CR [id number] KNEE-LIMITED 2 VIEWS-RT from 11/06/2013 CR [id number] KNEE-LIMITED 2 VIEWS-RT from 11/27/2013 CR [id number] XR knee RT 3V from 12/15/2017 CR [id number] XR hip LT 2-3V w/pelvis from 12/16/2017 FINDINGS: [id number] osteoarthritic changes are present with worse at the medial compartment. A well-circumscribed defect is present in the proximal tibia medially extending to the tibial plateau oblique in nature consistent with an old ununited fracture with some bony hypertrophic changes at this region medially. There is an old fracture in the midshaft of the femur. Other findings:None. 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
--- NOTE | 2020-12-15 12:11 | HMH.EDFALL ---
ED Disposition Clinical Impression: Concussion without loss of consciousness Qualifiers: Encounter type: initial encounter Qualified Code(s): S06.0X0A - Concussion without loss of consciousness, initial encounter Laceration of scalp without complication Qualifiers: Encounter type: initial encounter Qualified Code(s): S01.01XA - Laceration without foreign body of scalp, initial encounter Disposition: Home, Self-Care Condition on Discharge: Good Instructions: How to Prevent Falls Referrals: Kolton Goyal MD [Primary Care Provider] - - Critical Care Critical Care Time: No Attestation: On 12/15/20, the high probability of a clinically significant, sudden or life threatening deterioration of the following system(s) required my full and direct attention, intervention and personal management. The time I documented below is in addition to time spent performing reported procedures but includes the following listed in this critical care notation. Medical Decision Making - Medical Records Medical records reviewed: Yes: I reviewed the patient's medical records. - Arnie Inquiry Pt receiving controlled substance: No Vital Signs: 12/15/20 11:49 12/15/20 12:34 12/15/20 13:00 Temperature 97.6 F Temperature Source Oral Pulse Rate 88 95 H Pulse Rate [Left] 95 H Respiratory Rate 20 18 20 Blood Pressure 120/79 130/76 Blood Pressure [Right Arm] 111/71 Blood Pressure Mean [Right Arm] 84 Blood Pressure Source [Right Arm] Automatic Cuff Blood Pressure Position [Right Arm] Supine 02 Sat by Pulse Oximetry 98 94 L 92 L Oxygen Delivery Method Room Air 12/15/20 13:30 12/15/20 14:00 Temperature Temperature Source Pulse Rate 82 83 Pulse Rate [Left] Respiratory Rate 20 18 Blood Pressure 118/70 127/71 Blood Pressure [Right Arm] Blood Pressure Mean [Right Arm] Blood Pressure Source [Right Arm] Blood Pressure Position [Right Arm] 02 Sat by Pulse Oximetry 94 L 93 L Oxygen Delivery Method - Lab Data Lab Results 12/15/20 12:15: WBC 8.1, RBC 4.84, Hgb 15.3, Hct 42.1, MCV 87.0, MCH 31.6 H, MCHC 36.3 H, RDW 13.2, Plt Count 317, MPV 7.2 L, Neut % (Auto) 82.7 H, Lymph % (Auto) 8.5 L, [place] % (Auto) 7.0, Eos % (Auto) 1.2, Baso % (Auto) 0.6, Neut # (Auto) 6.7, Lymph # (Auto) 0.7, [place] # (Auto) 0.6, Eos # (Auto) 0.1, Baso # (Auto) 0.1 12/15/20 12:15: Sodium 135 L, Potassium 3.3 L, Chloride 98, Carbon Dioxide 30, Anion Gap 10.3, BUN 17, Creatinine 1.10, Estimated Creat Clear 101, Estimated GFR 68, Est GFR ( Amer) 82, Glucose 105 H, Calcium 8.8, Total Bilirubin 0.5, AST 29, ALT 25, Alkaline Phosphatase 132 H, Total Protein 7.5, Albumin 4.4, Globulin 3.1, Albumin/Globulin Ratio 1.4 Result diagrams: 12/15/20 12:15 12/15/20 12:15 - Radiology Data #1 Image(s): Knee, Foot/Toes Image Reviewed: Yes I reviewed the patient's radiology results, Yes I reviewed the patient's radiology image, Yes I have reviewed radiologist's interpretation IMPRESSION: 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 - CT Data CT Scan: Head Time Received: 14:[address] Reviewed: Yes: I have reviewed the patient's CT results, I have viewed the radiologist's interpretation Findings Narrative: IMPRESSION: No acute intracranial finding Small left parietal scalp hematoma - Reevaluation(s) Time: 14:18 Reevaluation #1: On reevaluation, patient is feeling better. No acute fracture. No intracranial abnormality. Repeat neuro exam did not show any significant abnormalities. Patient tolerated staple repair well. Patient given precautions on staple removal. Given strict return precautions. Verbalized understanding. Medical Decision Narrative: 60-year-old male presented to the emergency department after accidental fall. No loss of consciousness. Imaging will be obtained. Work-up initiated. Fall HPI - General C
[2020-12-15 12:34] VITALS: BP 120/79; PULSE 88; RESP 18; O2SAT 94
[2020-12-15 12:34] LABS: Basophils # 0.1 K/mm3 (0-0.2); Basophils % 0.6 % (0.1-2.0); Eosinophils # 0.1 K/mm3 (0.0-0.4); Eosinophils % 1.2 % (0.1-12.0); Hematocrit 42.1 % (42.0-52.0); Hemoglobin 15.3 g/dL (14.1-18.0); Lymphocytes # 0.7 K/mm3 (0.7-4.5); Lymphocytes % 8.5 % (10-50); Mean Corpuscular HGB Conc 36.3 g/dL (31.8-35.4); Mean Corpuscular Hemoglobin 31.6 pg (27.0-31.2); Mean Platelet Volume 7.2 fl (7.4-10.4); Monocytes # 0.6 K/mm3 (0.1-1.0); Neutrophils # 6.7 K/mm3 (1.8-7.8); Neutrophils % 82.7 % (37.0-80.0); Platelet Count 317 K/mm3 (142-424); Red Blood Count 4.84 M/mm3 (4.60-6.20); Red Cell Distribution Width 13.2 % (11.5-17.5); White Blood Count 8.1 K/mm3 (4.8-10.8)
--- NOTE | 2020-12-15 12:49 | PC.NURSE ---
pt sister at
[2020-12-15 12:59] LABS: Chloride 98 mmol/L (98-107); Potassium 3.3 mmoL/L (3.5-5.1); Sodium 135 mmol/L (136-145)
[2020-12-15 13:00] VITALS: BP 130/76; PULSE 95; RESP 20; O2SAT 92
[2020-12-15 13:01] LABS: Alanine Aminotransferase 25 U/L (12-78); Alkaline Phosphatase 132 U/L (38-126); Anion Gap 10.3 mEq/L (5-15); Aspartate Amino Transferase 29 U/L (17-59); Bilirubin,Total 0.5 mg/dl (0.2-1.3); Blood Urea Nitrogen 17 mg/dl (9-20); Carbon Dioxide 30 mmol/L (22.0-30.0); Creatinine Clearance Estimated 101 mL/min (50-200); Estimated Glomerular Filt Rate 68 ml/min (>60); GFR (African American) 82 ML/MIN (>60)
[2020-12-15 13:02] LABS: Albumin Level 4.4 g/dl (3.5-5.0); Albumin/Globulin Ratio 1.4 (1.1-1.8); Calcium 8.8 mg/dl (8.4-10.2); Globulin 3.1 g/dL (1.3-3.2); Glucose 105 mg/dl (74-100); Total Protein,Serum 7.5 g/dl (6.3-8.2)
[2020-12-15 13:30] VITALS: BP 118/70; PULSE 82; RESP 20; O2SAT 94
[2020-12-15 14:00] VITALS: BP 127/71; PULSE 83; RESP 18; O2SAT 93
--- NOTE | 2020-12-15 14:07 | PC.NURSE ---
patient laceration on back back of head cleaned with peroxide and 4x4 by Yara Jaeger RN
--- NOTE | 2020-12-15 14:13 | PC.NURSE ---
in room, suturing laceration on patient
[2020-12-15 15:10] VITALS: BP 124/76; PULSE 78; RESP 20; TEMP 36.6; O2SAT 97
== END 2020-12-15 15:00 | disposition home or self-care (01) ==
PROVIDERS: Emergency Provider Emergency Medicine; PCP Family Medicine
DX: S06.0X0A Concussion without loss of consciousness, initial encounter (principal); S01.01XA Laceration without foreign body of scalp, initial encounter; W01.0XXA Fall on same level from slipping, tripping and stumbling without subsequent striking against object, initial encounter; Y92.019 Unspecified place in single-family (private) house as the place of occurrence of the external cause; I25.10 Atherosclerotic heart disease of native coronary artery without angina pectoris; K21.9 Gastro-esophageal reflux disease without esophagitis; E78.5 Hyperlipidemia, unspecified
CPT/HCPCS: 12001; 70450; 73562; 73620; 80053; 85025; 99283

== ENCOUNTER 2021-01-08 09:41 | Observation (INO) | payer MEDICARE, OTHER, SELFPAY ==
[2021-01-08] VITALS (10 sets, daily range): BP systolic 84–131; BP diastolic 52–79; PULSE 67–93; RESP 16–18; TEMP 36.5–36.8; O2SAT 93–98; BMI 27.3; BMI 33.5
--- NOTE | 2021-01-08 09:43 | CT_ITS ---
PROCEDURE: CT HEAD/BRAIN WO CON CLINICAL INDICATION: head trauma Head injury with headache/pain, contusion, abrasion or hematoma, seizure COMPARISON: CT CT HEAD/BRAIN WO CON from 12/15/2020 TECHNIQUE: Axial images obtained. All CT scans at the facility use one or more dose reduction, viz: automated exposure control, ma/kV adjustment per patient size (including targeted exams where dose is matched to indication, i.e. head), or iterative reconstruction technique. FINDINGS: No midline shift, mass effect, intracranial hemorrhage, hydrocephalus, or extra-axial fluid collection is evident. There is generalized atrophy with hypoattenuation of the periventricular white matter consistent with microangiopathic changes. The calvarium has an unremarkable appearance. No mastoid effusion. No sinus air-fluid level. IMPRESSION: No acute intracranial finding Dictated by: Eran Harris MD 01/08/2021 10:25 Eran Harris MD in [facility] 01/08/2021 10:25
--- NOTE | 2021-01-08 09:43 | XR_ITS ---
PROCEDURE: XR CHEST PORTABLE CLINICAL HISTORY: AMS COMPARISON: CR CXR2 CHEST-AP VIEW ONLY from 05/31/2016 CR CXR2V XR chest 2V from 12/15/2017 CR XR CHEST AP from 05/21/2019 FINDINGS: The cardiomediastinal silhouette and pulmonary vascularity are within normal limits. The lungs are clear without infiltrates, suspicious nodules, or pleural effusions. No acute bony abnormalities. IMPRESSION: No acute findings. Dictated by: Eran Harris MD 01/08/2021 10:54 Eran Harris MD in [facility] 01/08/2021 10:54
--- NOTE | 2021-01-08 09:45 | CT_ITS ---
PROCEDURE: CT CERVICAL SPINE WO CON CLINICAL INDICATION: trauma altered mental status Neck injury with pain, contusion/abrasion or hematoma, cervical sprain/strain the COMPARISON: CT SPCERVWO CT cervical spine wo con from 12/20/2017 TECHNIQUE: Axial images obtained with sagittal and coronal reformats. All CT scans at the facility use one or more dose reduction, viz: automated exposure control, ma/kV adjustment per patient size (including targeted exams where dose is matched to indication, i.e. head), or iterative reconstruction technique. Axial spiral CT scanning performed of the cervical spine beginning at the base of the skull and continuing to the upper T-spine. 3-D multiplanar reconstruction with 3-D manipulation of volumetric data set in image rendering was completed by the radiologist and/or technologist with the supervision of the radiologist on independent workstation. FINDINGS: Normal alignment. No acute fracture or dislocation is evident. Hypertrophic changes are present involving the right facets at occipital condyle and C1 lateral mass. C2-C3: Bulging disc with endplate hypertrophic change and uncovertebral hypertrophy along with facet hypertrophy with severe bilateral foraminal narrowing and canal stenosis. C3-C4: Bulging disc with prominent uncovertebral and facet hypertrophy with canal stenosis and severe bilateral foraminal narrowing C4-C5: Degenerative disc disease with prominent anterior osteophytes as well as facet and uncovertebral hypertrophy with borderline canal stenosis and severe bilateral foraminal narrowing C5-C6: Degenerative disc disease with endplate hypertrophic change along with bulging disc and uncovertebral and facet hypertrophic change with very severe bilateral foraminal narrowing and canal stenosis of 8 mm. C6-C7: Degenerative disc disease with bulging disc and bilateral foraminal narrowing from facet and uncovertebral hypertrophy. No acute fracture or dislocation. Lung apices are clear. IMPRESSION: 1. No acute fracture. 2. Severe cervical spondylosis with foraminal and lateral recess narrowing and canal stenosis as detailed above overall not significantly changed. Dictated by: Eran Harris MD 01/08/2021 10:31 Eran Harris MD in [facility] 01/08/2021 10:31
--- NOTE | 2021-01-08 09:47 | ECG_ITS ---
APPROVED REPORT Exam: Resting ECG HR:93 bpm ECG Measurements Heart Rate 93 AXES FL 186 P 83 QRSd 86 QRS 36 QT 334 T 41 QTc 415 Conclusion Normal sinus rhythm Nonspecific ST abnormality Abnormal ECG Electronically signed by : Raul Yousif, 01/08/2021 17:00:34
--- NOTE | 2021-01-08 09:49 | HMH.EDAMS ---
ED Disposition Clinical Impression: Misuse of medication Disposition: Admitted as Observation Condition on Discharge: Good - Critical Care Critical Care Time: No Attestation: On , the high probability of a clinically significant, sudden or life threatening deterioration of the following system(s) required my full and direct attention, intervention and personal management. The time I documented below is in addition to time spent performing reported procedures but includes the following listed in this critical care notation. Medical Decision Making - Medical Records Medical records reviewed: Yes: I reviewed the patient's medical records. - Arnie Inquiry Pt receiving controlled substance: No Vital Signs: 01/08/21 09:41 01/08/21 10:30 01/08/21 11:00 Temperature 98.2 F Temperature Source Oral Pulse Rate 82 70 Pulse Rate [Radial] 93 H Respiratory Rate 16 16 16 Blood Pressure 90/59 L 84/52 L Blood Pressure [Right Arm] 100/61 L Blood Pressure Mean 70 60 Blood Pressure Mean [Right Arm] 74 Blood Pressure Position Blood Pressure Position [Right Arm] Sitting 02 Sat by Pulse Oximetry 98 93 L 96 Oxygen Delivery Method Room Air 01/08/21 11:31 01/08/21 12:00 01/08/21 12:30 Temperature Temperature Source Pulse Rate 69 82 74 Pulse Rate [Radial] Respiratory Rate 16 16 18 Blood Pressure 112/79 111/66 107/68 L Blood Pressure [Right Arm] Blood Pressure Mean Blood Pressure Mean [Right Arm] Blood Pressure Position Sitting Sitting Sitting Blood Pressure Position [Right Arm] 02 Sat by Pulse Oximetry 98 98 96 Oxygen Delivery Method Room Air Room Air Room Air 01/08/21 14:20 Temperature 98 F Temperature Source Oral Pulse Rate 87 Pulse Rate [Radial] Respiratory Rate 18 Blood Pressure 102/65 L Blood Pressure [Right Arm] Blood Pressure Mean Blood Pressure Mean [Right Arm] Blood Pressure Position Sitting Blood Pressure Position [Right Arm] 02 Sat by Pulse Oximetry Oxygen Delivery Method Room Air - Lab Data Lab Results 01/08/21 09:49: WBC 7.2, RBC 4.57 L, Hgb 14.5, Hct 41.5 L, MCV 90.8, MCH 31.7 H, MCHC 34.9, RDW 13.1, Plt Count 257, MPV 7.1 L, Neut % (Auto) 76.3, Lymph % (Auto) 12.4, [place] % (Auto) 7.4, Eos % (Auto) 3.1, Baso % (Auto) 0.7, Neut # (Auto) 5.5, Lymph # (Auto) 0.9, [place] # (Auto) 0.5, Eos # (Auto) 0.2, Baso # (Auto) 0.1 01/08/21 09:49: Sodium 138, Potassium 3.3 L, Chloride 99, Carbon Dioxide 32 H, Anion Gap 10.3, BUN 21 H, Creatinine 1.00, Estimated Creat Clear 88, Estimated GFR 76, Est GFR ( Amer) 92, Glucose 105 H, Calcium 8.7, Total Bilirubin 0.3, AST 25, ALT 23, Alkaline Phosphatase 108, Troponin I < 0.01, Total Protein 6.6, Albumin 3.9, Globulin 2.7, Albumin/Globulin Ratio 1.4, TSH 1.52 01/08/21 12:45: Troponin I < 0.01 01/08/21 12:53: SARS-CoV-2 (PCR) Not detected, Influenza A Untype (PCR) Not detected, Influenza Type B (PCR) Not detected Result diagrams: 01/08/21 09:49 01/08/21 09:49 Orders (Tests/Meds): ED MEDICATIONS Generic Name Dose Route Start Last Admin Trade Name Freq PRN Reason Stop Dose Admin Acetaminophen 650 mg 01/08/21 13:26 Acetaminophen 325mg Tab PO 02/07/21 13:25 Q4HP PRN Fever or Mild Pain Docusate Sodium 100 mg 01/09/21 09:00 Docusate Sodium 100 Mg Capsule PO 02/08/21 08:59 DAILY STEPHENIE Pantoprazole Sodium 40 mg 01/09/21 09:00 Pantoprazole 40mg Tablet PO 02/08/21 08:59 DAILY STEPHENIE Potassium Chloride 20 meq 01/08/21 16:30 01/08/21 17:18 Potassium Chloride 20meq Tab PO 02/07/21 16:29 20 meq DAILY STEPHENIE Administration Discontinued Medications Generic Name Dose Route Start Last Admin Trade Name Freq PRN Reason Stop Dose Admin Sodium Chloride 1,000 mls @ 999 mls/hr 01/08/21 10:00 01/08/21 10:01 Sod Chlor 0.9% 1000ml Bag IV 01/08/21 11:00 999 mls/hr .Q1H1M STEPHENIE Administration ORDERS Category Date Time Status Basic Metabolic Panel AMLAB Lab 01/09/21 0
[2021-01-08 09:57] LABS: Basophils # 0.1 K/mm3 (0-0.2); Basophils % 0.7 % (0.1-2.0); Eosinophils # 0.2 K/mm3 (0.0-0.4); Eosinophils % 3.1 % (0.1-12.0); Hematocrit 41.5 % (42.0-52.0); Hemoglobin 14.5 g/dL (14.1-18.0); Lymphocytes # 0.9 K/mm3 (0.7-4.5); Lymphocytes % 12.4 % (10-50); Mean Corpuscular HGB Conc 34.9 g/dL (31.8-35.4); Mean Corpuscular Hemoglobin 31.7 pg (27.0-31.2); Mean Corpuscular Volume 90.8 fl (80-94); Mean Platelet Volume 7.1 fl (7.4-10.4); Monocytes # 0.5 K/mm3 (0.1-1.0); Monocytes % 7.4 % (1.7-9.3); Neutrophils # 5.5 K/mm3 (1.8-7.8); Neutrophils % 76.3 % (37.0-80.0); Platelet Count 257 K/mm3 (142-424); Red Blood Count 4.57 M/mm3 (4.60-6.20); Red Cell Distribution Width 13.1 % (11.5-17.5); White Blood Count 7.2 K/mm3 (4.8-10.8)
[2021-01-08 10:03] LABS: Potassium 3.3 mmoL/L (3.5-5.1); Sodium 138 mmol/L (136-145)
[2021-01-08 10:06] LABS: Alanine Aminotransferase 23 U/L (12-78); Albumin Level 3.9 g/dl (3.5-5.0); Albumin/Globulin Ratio 1.4 (1.1-1.8); Alkaline Phosphatase 108 U/L (38-126); Aspartate Amino Transferase 25 U/L (17-59); Bilirubin,Total 0.3 mg/dl (0.2-1.3); Blood Urea Nitrogen 21 mg/dl (9-20); Carbon Dioxide 32 mmol/L (22.0-30.0); Creatinine Clearance Estimated 88 mL/min (50-200); Estimated Glomerular Filt Rate 76 ml/min (>60); GFR (African American) 92 ML/MIN (>60); Globulin 2.7 g/dL (1.3-3.2); Total Protein,Serum 6.6 g/dl (6.3-8.2)
[2021-01-08 10:07] LABS: Calcium 8.7 mg/dl (8.4-10.2); Glucose 105 mg/dl (74-100)
[2021-01-08 10:20] LABS: Anion Gap 10.3 mEq/L (5-15); Chloride 99 mmol/L (98-107)
[2021-01-08 10:21] LABS: Troponin I < 0.01 ng/ml (0.00-0.034)
[2021-01-08 10:38] LABS: Thyroid Stimulating Hormone 1.52 uIU/mL (0.465-4.68)
--- NOTE | 2021-01-08 11:55 | PC.NURSE ---
attempted to stand pt at side of bed for urine. pt unsteady needed to staff to help stand him
--- NOTE | 2021-01-08 12:28 | PC.NURSE ---
Dr Jyotsna garcia
--- NOTE | 2021-01-08 12:36 | PC.NURSE ---
Dr Woods spoke with Dr Goyal
[2021-01-08 12:57] LABS: Coronavirus 19, PCR Not Detected (NotDetected); Influenza A, PCR Not Detected (NotDetected); Influenza B, PCR Not Detected (NotDetected)
--- NOTE | 2021-01-08 13:21 | PC.NURSE ---
attempted to call report to floor, nurse will have to call you back
--- NOTE | 2021-01-08 13:34 | PC.NURSE ---
report called to floor
--- NOTE | 2021-01-08 13:41 | HMH.PHAVTE ---
[facility] Pharmacy VTE Monitoring - Patient Demographics Admission date: 01/08/21 Report Date: 01/08/21 Time: 13:41 Allergies/Adverse Reactions: Patient Allergies No Known Allergies Allergy (Verified 07/15/20 11:26) Height: 1.73 m Weight: 81.647 kg - VTE Risk Labs: VTE Related Lab Results Hgb 14.5 g/dL (14.1-18.0) 01/08/21 09:49 Hct 41.5 % (42.0-52.0) L 01/08/21 09:49 Plt Count 257 K/mm3 (142-424) 01/08/21 09:49 BUN 21 mg/dl (9-20) H 01/08/21 09:49 Creatinine 1.00 mg/dl (0.66-1.25) 01/08/21 09:49 Estimated Creat Clear 88 mL/min (50-200) 01/08/21 09:49 Clinical Trial Participant: No - Prophylaxis VTE Prophylaxis Ordered?: Yes Types of VTE Prophylaxis: TEDS Knee High
[2021-01-08 14:05] LABS: Troponin I < 0.01 ng/ml (0.00-0.034)
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
--- NOTE | 2021-01-08 15:58 | HMH.PHAINT ---
MEDICATION RECONCILIATION COMPLETED ON PT USING EXTERNAL PHARMACY FILL HISTORY AND VERBAL LIST FROM THE MD OFFICE.
[2021-01-08 16:33] LABS: Troponin I < 0.01 ng/ml (0.00-0.034)
[2021-01-09 00:01] LABS: POC Glucose,Bedside 101 (70-110)
--- NOTE | 2021-01-09 04:01 | PC.NURSE ---
shift summary pt is alert but confused. lung sounds are clear with sats maintained 90% or above on room air. pt has rested comfortably with no complaints. pt is able to stand and pivot to sit on bedside commode with assist X1, urine is clear and yellow in color. pt denies any pain, nausea, vomiting, or diarrhea. no acute changes will continue to monitor.
[2021-01-09 04:05] VITALS: BP 130/68; PULSE 53; RESP 18; TEMP 36.7; O2SAT 95
[2021-01-09 05:29] VITALS: BMI 33.5
[2021-01-09 06:52] LABS: Basophils # 0.1 K/mm3 (0-0.2); Basophils % 0.7 % (0.1-2.0); Eosinophils # 0.3 K/mm3 (0.0-0.4); Eosinophils % 3.8 % (0.1-12.0); Hematocrit 38.9 % (42.0-52.0); Hemoglobin 13.7 g/dL (14.1-18.0); Lymphocytes # 1.2 K/mm3 (0.7-4.5); Lymphocytes % 16.9 % (10-50); Mean Corpuscular HGB Conc 35.2 g/dL (31.8-35.4); Mean Corpuscular Hemoglobin 31.9 pg (27.0-31.2); Mean Corpuscular Volume 90.6 fl (80-94); Mean Platelet Volume 7.3 fl (7.4-10.4); Monocytes # 0.5 K/mm3 (0.1-1.0); Monocytes % 7.1 % (1.7-9.3); Neutrophils # 4.8 K/mm3 (1.8-7.8); Neutrophils % 71.4 % (37.0-80.0); Platelet Count 241 K/mm3 (142-424); Red Blood Count 4.29 M/mm3 (4.60-6.20); Red Cell Distribution Width 13.4 % (11.5-17.5); White Blood Count 6.8 K/mm3 (4.8-10.8)
[2021-01-09 07:19] LABS: Blood Urea Nitrogen 16 mg/dl (9-20); Calcium 8.2 mg/dl (8.4-10.2); Carbon Dioxide 31 mmol/L (22.0-30.0); Chloride 101 mmol/L (98-107); Creatinine Clearance Estimated 99 mL/min (50-200); Estimated Glomerular Filt Rate 76 ml/min (>60); GFR (African American) 92 ML/MIN (>60); Glucose 93 mg/dl (74-100); Sodium 138 mmol/L (136-145)
[2021-01-09 07:30] VITALS: BP 122/68; PULSE 66; RESP 18; TEMP 36.5; O2SAT 96
--- NOTE | 2021-01-09 08:21 | HMH.ACPN2 ---
<Gissel Lawson - Last Filed: 01/09/21 08:21> Internal Medicine - PN: Subj *Date: 01/09/21 *Time: 08:21 Interval history: Patient is more awake and alert this morning. He is able to answer questions and states that his back hurts. His stomach is feeling better. He has not been up walking since he has been here. He was able to eat this morning. Exam Vital signs and Labs for Last 24 Hours: Temp Pulse Resp BP Pulse Ox 97.7 F 66 18 122/68 96 01/09/21 07:30 01/09/21 07:30 01/09/21 07:30 01/09/21 07:30 01/09/21 07:30 Laboratory Results - last 24 hr 01/08/21 09:49: WBC 7.2, RBC 4.57 L, Hgb 14.5, Hct 41.5 L, MCV 90.8, MCH 31.7 H, MCHC 34.9, RDW 13.1, Plt Count 257, MPV 7.1 L, Neut % (Auto) 76.3, Lymph % (Auto) 12.4, [place] % (Auto) 7.4, Eos % (Auto) 3.1, Baso % (Auto) 0.7, Neut # (Auto) 5.5, Lymph # (Auto) 0.9, [place] # (Auto) 0.5, Eos # (Auto) 0.2, Baso # (Auto) 0.1 01/08/21 09:49: Sodium 138, Potassium 3.3 L, Chloride 99, Carbon Dioxide 32 H, Anion Gap 10.3, BUN 21 H, Creatinine 1.00, Estimated Creat Clear 88, Estimated GFR 76, Est GFR ( Amer) 92, Glucose 105 H, Calcium 8.7, Total Bilirubin 0.3, AST 25, ALT 23, Alkaline Phosphatase 108, Troponin I < 0.01, Total Protein 6.6, Albumin 3.9, Globulin 2.7, Albumin/Globulin Ratio 1.4, TSH 1.52 01/08/21 12:45: Troponin I < 0.01 01/08/21 12:53: SARS-CoV-2 (PCR) Not detected, Influenza A Untype (PCR) Not detected, Influenza Type B (PCR) Not detected 01/08/21 16:00: Troponin I < 0.01 01/08/21 16:17: POC Glucose 101 01/09/21 06:42: WBC 6.8, RBC 4.29 L, Hgb 13.7 L, Hct 38.9 L, MCV 90.6, MCH 31.9 H, MCHC 35.2, RDW 13.4, Plt Count 241, MPV 7.3 L, Neut % (Auto) 71.4, Lymph % (Auto) 16.9, [place] % (Auto) 7.1, Eos % (Auto) 3.8, Baso % (Auto) 0.7, Neut # (Auto) 4.8, Lymph # (Auto) 1.2, [place] # (Auto) 0.5, Eos # (Auto) 0.3, Baso # (Auto) 0.1 01/09/21 06:42: Sodium 138, Potassium 4.0 D, Chloride 101, Carbon Dioxide 31 H, Anion Gap 10.0, BUN 16, Creatinine 1.00, Estimated Creat Clear 99, Estimated GFR 76, Est GFR ( Amer) 92, Glucose 93, Calcium 8.2 L I & O for Last 24 hours: Intake & Output 01/06/21 01/07/21 01/08/21 01/09/21 11:59 11:59 11:59 11:59 Intake Total 600 / 600 Balance 600 / 600 Weight 180 lb 201 lb 3 oz - Constitutional no acute distress - *Routine Respiratory Exam Present: CTA bilaterally - *Routine Cardiovascular Exam Present: RRR - *Routine Abdominal Exam Present: soft, normoactive bowel sounds. Absent: tenderness - *Routine Extremities Exam Present: edema. Absent: cyanosis, clubbing - *Routine Skin Exam Present: warm. Absent: rash - *Routine Neurological Exam Present: alert Assessment and Plan (1) Accidental drug ingestion Status: Acute Qualifiers: Encounter type: initial encounter Qualified Code(s): T50.901A - Poisoning by unspecified drugs, medicaments and biological substances, accidental (unintentional), initial encounter Category: Medical Code(s): T50.901A - Poisoning by unspecified drugs, medicaments and biological substances, accidental (unintentional), initial encounter (2) Change in mental status Status: Acute Category: Medical Code(s): R41.82 - Altered mental status, unspecified (3) CAD (coronary artery disease) Status: Chronic Qualifiers: Coronary Disease-Associated Artery/Lesion type: [place] artery [place] vs. transplanted heart: [place] heart Associated angina: without angina Qualified Code(s): I25.10 - Atherosclerotic heart disease of [place] coronary artery without angina pectoris Category: Medical Code(s): I25.10 - Atherosclerotic heart disease of [place] coronary artery without angina pectoris (4) GERD (gastroesophageal reflux disease) Status: Chronic Qualifiers: Esophagitis presence: esophagitis presence not specified Qualified Code(s): K21.9 - Gastro-esophageal reflux disease without esophagitis Category: Medical Code(s): K21.9 - Gastro-esophageal reflux disea
--- NOTE | 2021-01-09 11:49 | HMH.PTEV ---
Physical Therapy Evaluation Rehab PT IP Evaluation Start: 01/09/21 08:35 Freq: ONCE Status: Active Protocol: Document 01/09/21 11:46 PHORJESUS (Rec: 01/09/21 11:48 PHORNE [id number]) Subjective/History History History 60 yowm adm to [facility] sfter found down at home. He reports he lives alone, no steps to enter the home and uses a cane for ambulation at baseline. Subjective Subjective No c/o this am. Rehab PT IP Eval Objective Appearance Patient Behavior Appropriate Patient Orientation Person,Place,Time Difficulty following instructions none Speech Pattern Clear Ambulation Patient Able to Ambulate Yes Ambulation Observation IP General Gait Pattern Observation Wide Based Gait Ambulation Distance (feet) 250 Ambulation Assistive Device Rolling Walker Ambulation Ability Supervision/Stand by Balance Ability to Arise Able, uses arms to help Sitting Balance Steady, safe Standing Balance Steady, wide stance Dynamic Sitting Balance Ability Good Dynamic Standing Balance Ability Fair Transfers Bed Transfer Ability Supervision/Stand by Chair Transfer Ability Supervision/Stand by Sit to Stand Bed Transfer Ability Supervision/Stand by Sit to Stand Chair Transfer Ability Supervision/Stand by ROM All Extremities PT ROM Status WFL MMT All Extremities PT MMT WFL Rehab PT IP prob,goals,plan Problems Date of Evaluation: 01/09/21 Discharge Plan PT Discharge Plan Pt appears to be at baseline for all mobility at this time and is appropriate to return home once medically stable. G -code Required No Eval Complexity Eval Charge Codes 46152 - Moderate Complexity PHYSICIAN CERTIFICATION: I certify the specified therapy services for Abelardo Juarez are required, authorized, and reviewed every 30 days.
--- NOTE | 2021-01-09 16:09 | HMH.DCSUM ---
General - General Admission date:: 01/08/21 <Kolton Goyal - 02/16/21 18:31> 01/08/21 <Gissel Lawson - 01/09/21 16:12> Discharge date: 01/09/21 <Gissel Lawson - 01/09/21 16:12> HPI HPI: 60-year-old male who presents with EMS from home where he was found down on the floor after a fall this morning with a history of seizures, but also was heard calling for help by a neighbor who called 911 and called his POA, who is his sister. Patient's sister checked his medication box today and noticed that he had taken his morning medications, but also was missing his evening dose. Patient was unable to get up after the fall. Not complaining of pain at this time. Any potential seizure activity was unwitnessed. No apparent urination or tongue biting. (above as per ER physician) He was still difficult to arouse in the ER and it was felt he should be admitted for monitoring. He is a poor historian and can only relate that he aches all over. <Gissel Lawson - 01/09/21 16:12> Hospital Course Hospital Course: The patient's imaging showed nothing acute and no fractures. Potassium supplementation was added due to hypokalemia. The patient did arouse and was able to tell Dr. Goyal he had felt sick and vomited and then fell on the floor. He stated he hit his head but did not lose consciousness. He was pretty sure he did not have a seizure. He did complain of weakness in his legs and did not think he could walk. It was felt his altered mental status was due to taking too much of his prescribed medication. He was kept and his seizure medications were held overnight. By 01/09/2021, he was much more awake and alert. His only complaint was of some back pain. He was unsure if he could walk, therefore a PT evaluation was ordered. Physical therapy felt the patient was at baseline for all mobility and could return home. He was therefore stable to be discharged and will follow up with Dr. Goyal in the office. <Gissel Lawson - 01/09/21 16:12> Objective Vital signs: Temp Pulse Resp BP Pulse Ox 97.7 F 66 18 122/68 96 01/09/21 07:30 01/09/21 07:30 01/09/21 07:30 01/09/21 07:30 01/09/21 07:30 <Kolton Goyal - 02/16/21 18:31> Temp Pulse Resp BP Pulse Ox 97.7 F 66 18 122/68 96 01/09/21 07:30 01/09/21 07:30 01/09/21 07:30 01/09/21 07:30 01/09/21 07:30 <Gissel Lawson - 01/09/21 16:12> Narrative: - Constitutional no acute distress - *Routine Respiratory Exam Present: CTA bilaterally - *Routine Cardiovascular Exam Present: RRR - *Routine Abdominal Exam Present: soft, normoactive bowel sounds. Absent: tenderness - *Routine Extremities Exam Present: edema. Absent: cyanosis, clubbing - *Routine Skin Exam Present: warm. Absent: rash - *Routine Neurological Exam Present: alert <Gissel Lawson - 01/09/21 16:12> Results Labs on day of discharge: Labs from last 24 hours 01/09/21 01/09/21 01/08/21 06:42 06:42 16:17 WBC 6.8 RBC 4.29 L Hgb 13.7 L Hct 38.9 L MCV 90.6 MCH 31.9 H MCHC 35.2 RDW 13.4 Plt Count 241 MPV 7.3 L Neut % (Auto) 71.4 Lymph % (Auto) 16.9 [place] % (Auto) 7.1 Eos % (Auto) 3.8 Baso % (Auto) 0.7 Neut # (Auto) 4.8 Lymph # (Auto) 1.2 [place] # (Auto) 0.5 Eos # (Auto) 0.3 Baso # (Auto) 0.1 Sodium 138 Potassium 4.0 D Chloride 101 Carbon Dioxide 31 H Anion Gap 10.0 BUN 16 Creatinine 1.00 Estimated Creat Clear 99 Estimated GFR 76 Est GFR ( Amer) 92 Glucose 93 POC Glucose 101 Calcium 8.2 L Troponin I 01/08/21 16:00 WBC RBC Hgb Hct MCV MCH MCHC RDW Plt Count MPV Neut % (Auto) Lymph % (Auto) [place] % (Auto) Eos % (Auto) Baso % (Auto) Neut # (Auto) Lymph # (Auto) [place] # (Auto) Eos # (Auto) Baso # (Auto) Sodium Potassium Chloride Carbon Dioxide Anion Gap BUN Creatinine
== END 2021-01-09 13:00 | disposition home or self-care (01) ==
LOC: ER 10:18 → 2ND 13:05
PROVIDERS: Admitting Provider Family Medicine; Emergency Provider Student in an Organized Health Care Education/Training Program; PCP Family Medicine; Visit Provider Family Medicine
DX: T50.991A Poisoning by other drugs, medicaments and biological substances, accidental (unintentional), initial encounter (principal); G40.909 Epilepsy, unspecified, not intractable, without status epilepticus; E87.6 Hypokalemia; I25.10 Atherosclerotic heart disease of native coronary artery without angina pectoris; I10 Essential (primary) hypertension; Z20.822 Contact with and (suspected) exposure to COVID-19; R41.0 Disorientation, unspecified
CPT/HCPCS: 36415; 70450; 71045; 72125; 80048; 80053; 82962; 84443; 84484; 85025; 93005; 96365; 97162; 99284; 99291; G0378; U0003

== ENCOUNTER → 2021-01-22 12:43 | Outpatient (CLI) | payer MEDICARE, OTHER, SELFPAY ==
[2021-01-22 13:25] LABS: Chloride 95 mmol/L (98-107); Potassium 3.8 mmoL/L (3.5-5.1); Sodium 131 mmol/L (136-145)
[2021-01-22 13:28] LABS: Anion Gap 10.8 mEq/L (5-15); Blood Urea Nitrogen 13 mg/dl (9-20); Calcium 8.5 mg/dl (8.4-10.2); Carbon Dioxide 29 mmol/L (22.0-30.0); Estimated Glomerular Filt Rate 98 ml/min (>60); GFR (African American) 119 ML/MIN (>60); Glucose 104 mg/dl (74-100)
== END ==
PROVIDERS: Visit Provider Family Medicine
DX: E87.6 Hypokalemia (principal); E87.1 Hypo-osmolality and hyponatremia
CPT/HCPCS: 36415; 80048

== ENCOUNTER 2022-05-09 14:21 | Emergency (ER) | payer MEDICARE, OTHER, SELFPAY ==
[2022-05-09] VITALS (8 sets, daily range): BP systolic 90–108; BP diastolic 56–66; PULSE 67–85; RESP 13–18; TEMP 36.8; O2SAT 94–99; BMI 35.3
--- NOTE | 2022-05-09 15:01 | CT_ITS ---
PROCEDURE INFORMATION: Exam: CT Cervical Spine Without Contrast Exam date and time: 05/09/2022 3:11 PM Age: 61 years old Clinical indication: Injury or trauma; Fall; Blunt trauma TECHNIQUE: Imaging protocol: Computed tomography of the cervical spine without contrast. Radiation optimization: All CT scans at this facility use at least one of these dose optimization techniques: automated exposure control; mA and/or kV adjustment per patient size (includes targeted exams where dose is matched to clinical indication); or iterative reconstruction. COMPARISON: CT CERVICAL SPINE WO CON 01/08/2021 9:57 AM FINDINGS: Bones/joints: There is no fracture. Vertebral bodies maintain their height and alignment. There is no fracture of the vertebral bodies. There is no fracture of the posterior elements. There are large ventral osteophytes at C4-C5. There is spondylosis and disc space narrowing at C5-C6 and C6-C7 with posterior osteophytes and disc bulges resulting in moderate central spinal stenosis at C5-C6 and C6-C7. There is foraminal stenosis throughout the cervical spine. Lungs: Lung apices are normal. Soft tissues: Unremarkable. IMPRESSION: 1. No fracture of the cervical spine. 2. Spondylosis and disc disease with moderate central stenosis at C5-C6 and C6-C7. There is multilevel foraminal stenosis. Degenerative findings are stable compared with prior scan.
--- NOTE | 2022-05-09 15:01 | CT_ITS ---
PROCEDURE INFORMATION: Exam: CT Head Without Contrast Exam date and time: 05/09/2022 3:09 PM Age: 61 years old Clinical indication: Injury or trauma; Fall; Blunt trauma (contusions or hematomas); Without loss of consciousness; Additional info: Fall, hit head TECHNIQUE: Imaging protocol: Computed tomography of the head without contrast. Radiation optimization: All CT scans at this facility use at least one of these dose optimization techniques: automated exposure control; mA and/or kV adjustment per patient size (includes targeted exams where dose is matched to clinical indication); or iterative reconstruction. COMPARISON: CT HEAD/BRAIN WO CON 01/08/2021 9:57 AM FINDINGS: Brain: There is mild volume loss. There is minimal white matter lucency consistent with chronic microvascular disease. There is no infarct. There is no hemorrhage or extra-axial collection. There is no mass. Cerebral ventricles: There is no hydrocephalus. Paranasal sinuses: Visualized sinuses are unremarkable. No fluid levels. Mastoid air cells: Visualized mastoid air cells are well aerated. Bones/joints: Unremarkable. No acute fracture. Soft tissues: Unremarkable. IMPRESSION: No intracranial injury or lesion and no change from prior scan
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
--- NOTE | 2022-05-09 15:03 | XR_ITS ---
PROCEDURE INFORMATION: Exam: XR Chest Exam date and time: 05/09/2022 3:31 PM Age: 61 years old Clinical indication: Injury or trauma; Fall; Blunt trauma (contusions or hematomas) TECHNIQUE: Imaging protocol: Radiologic exam of the chest. Views: 1 view. COMPARISON: CR XR CHEST PORTABLE 01/08/2021 9:53 AM FINDINGS: Lungs: No focal pneumonia or pneumothorax. Pleural spaces: There are no pleural effusions present. Heart/Mediastinum: Heart demonstrates mild diffuse enlargement. Diaphragm: There is nonspecific elevation of the right hemidiaphragm. Bones/joints: The thoracic spine demonstrates mild degenerative changes at multiple levels. IMPRESSION: 1. Mild cardiomegaly. 2. No focal pneumonia or pneumothorax.
--- NOTE | 2022-05-09 15:04 | HMH.EDGENADL ---
Discharge Plan Disposition Patient Disposition: Home, Self-Care Condition: Good Prescriptions Prescriptions: No Action amlodipine 5 mg tablet 5 mg PO HS Qty: 90 1RF aspirin 81 mg tablet,delayed release (DR/EC) 81 mg PO HS Qty: 90 1RF atorvastatin 20 mg tablet 20 mg PO HS Qty: 90 1RF lisinopril-hydrochlorothiazide 20-25 mg tablet 1 tab PO HS Qty: 90 1RF ondansetron HCl 4 mg tablet 4 mg PO Q8H PRN (Reason: nausea and vomiting) Qty: 20 0RF hyoscyamine sulfate 0.125 mg tablet 0.125 mg PO QID PRN (Reason: diarrhea or abdominal cramping) Qty: 30 0RF clobazam 10 mg tablet 5 mg PO BID oxcarbazepine 300 MG tablet 600 mg PO BID Label Comments: TAKE 2 TABS BY MOUTH 2 TIMES DAILY. lacosamide 200 mg tablet 200 mg PO BID Referrals Follow up/Referrals: Kolton Goyal MD [Primary Care Provider] - See instructions Activity Restrictions/Add. Instructions Additional Instructions/Restrictions: Be careful take your evening and morning medications at the appropriate times. Additional instructions for HEAD INJURY: See your physician as soon as possible for further evaluation. Return immediately if severe headache, vomiting, problems with vision or speech, numbness or weakness of the extremities, or severe neck pain. Clinical Impressions Clinical Impression: Fall, Contusion of scalp, Accidental medication error, Weakness of both legs Discharge ED Provider: Pratik Skaggs Adult HPI General Chief complaint: Fall Stated complaint: fall Time Seen by Provider: 05/09/22 14:30 Mode of Arrival: EMS Source of Information: Patient and EMS Limitations: No Limitations Description of Symptoms (Recalled from ER Triage Doc. by RN): Pt to ED per EMS after reporting that his legs have been weak and he fell at home today, causing an abrasion to the back of his head. Denies LOC. EMS reports that all of pt's Tuesday meds were missing, morning and night doses. EMS reports that pt's sister advised that he has been mistakingly taking both doses at once more frequently lately and is concerned that may be what happend. Pt A&O X3. Slightly slurred speech noted. EMS states pt had an unsteady gait while ambulating to stretcher. Pt states that he fell in the shower a few days ago as well and c/o Lt shoulder pain. History of Present Illness HPI narrative: History obtained from patient, EMS, and patient's sister. Sister reports that he lives in assisted living, lives by himself, but she only lives a mile away. He reportedly fell today and hit the back of his head. He denies any other injuries. He reports that he fell because his legs are weak. He says his legs have been weak for years, this is not a new problem. His sister reports that he has frequent falls, in fact she is supposed to keep track of his number of falls to report to his neurologist. She reports that he recently has had stomach flu . He has had vomiting and diarrhea. She says that recently he is only been eating applesauce and Jell-O. He feels that he is getting over the stomach flu and is improving. His sister states that she has checked his medications and it appears that he has taken both his dosages of medication for this morning and tonight all this morning. Several of his medications are for seizures and she says they do cause drowsiness. She says that currently in the emergency department his behavior and speech appear to be at baseline to her. He saw Dr. Goyal, his PCP, in the office on Tuesday 6 days ago. She says that it was a routine office visit. She thinks that blood work was done, but has no knowledge of her results. She says that she discussed his frequent falls and weakness with Dr. Goyal and he recommended that he lose weight, stop drinking soda, and exercise by walking. She also states that she reported a recent fall where he injured his elbow, and Dr. Goyal thought it was just bruised. Related Data
--- NOTE | 2022-05-09 15:10 | PC.NURSE ---
PT GOING TO RADIOLOGY
[2022-05-09 15:20] LABS: Coronavirus 19, PCR Not Detected (NotDetected); Influenza A, PCR Not Detected (NotDetected); Influenza B, PCR Not Detected (NotDetected)
[2022-05-09 15:23] LABS: Basophils # 0.1 K/mm3 (0-0.2); Basophils % 1.1 % (0.1-2.0); Eosinophils # 0.3 K/mm3 (0.0-0.4); Eosinophils % 3.1 % (0.1-12.0); Hematocrit 42.4 % (42.0-52.0); Hemoglobin 14.6 g/dL (14.1-18.0); Lymphocytes # 0.9 K/mm3 (0.7-4.5); Lymphocytes % 10.5 % (10-50); Mean Corpuscular HGB Conc 34.5 g/dL (31.8-35.4); Mean Corpuscular Volume 92.8 fl (80-94); Mean Platelet Volume 7.3 fl (7.4-10.4); Monocytes # 0.7 K/mm3 (0.1-1.0); Monocytes % 8.4 % (1.7-9.3); Neutrophils # 6.2 K/mm3 (1.8-7.8); Neutrophils % 76.9 % (37.0-80.0); Platelet Count 361 K/mm3 (142-424); Red Blood Count 4.57 M/mm3 (4.60-6.20); Red Cell Distribution Width 13.5 % (11.5-17.5)
[2022-05-09 15:26] LABS: Chloride 89 mmol/L (98-107); Sodium 129 mmol/L (136-145)
[2022-05-09 15:27] LABS: Potassium 3.6 mmoL/L (3.5-5.1)
[2022-05-09 15:29] LABS: Alanine Aminotransferase 27 U/L (12-78); Albumin Level 3.7 g/dl (3.5-5.0); Albumin/Globulin Ratio 1.4 (1.1-1.8); Alkaline Phosphatase 109 U/L (38-126); Anion Gap 11.6 mEq/L (5-15); Aspartate Amino Transferase 27 U/L (17-59); Bilirubin,Total 0.2 mg/dl (0.2-1.3); Blood Urea Nitrogen 12 mg/dl (9-20); Carbon Dioxide 32 mmol/L (22.0-30.0); Creatinine Clearance Estimated 106 mL/min (50-200); Estimated Glomerular Filt Rate 75 ml/min (>60); GFR (African American) 91 ML/MIN (>60); Globulin 2.6 g/dL (1.3-3.2); Total Protein,Serum 6.3 g/dl (6.3-8.2)
[2022-05-09 15:30] LABS: Calcium 8.1 mg/dl (8.4-10.2); Glucose 109 mg/dl (74-100)
--- NOTE | 2022-05-09 15:59 | CT_ITS ---
PROCEDURE INFORMATION: Exam: CT Left Lower Extremity Without Contrast, Hip Exam date and time: 05/09/2022 4:02 PM Age: 61 years old Clinical indication: Injury or trauma; Fall; Blunt trauma; Patient HX: Left hip pain, exam requested by vrad radiologist. ; Additional info: Fall, shortened fem neck on x-ray TECHNIQUE: Imaging protocol: CT of the Left lower extremity without contrast was performed. Exam focused on the hip. Radiation optimization: All CT scans at this facility use at least one of these dose optimization techniques: automated exposure control; mA and/or kV adjustment per patient size (includes targeted exams where dose is matched to clinical indication); or iterative reconstruction. COMPARISON: CR HIPCMLT XR hip LT 2-3V w/pelvis 12/16/2017 2:52 PM FINDINGS: Bones/joints: There is a tubular lucency in the left proximal femur consistent with removal of an intramedullary malcolm. There is an old healed fracture of the proximal femur with bone thickening and deformity. There are bone fragments at the site of introduction of intramedullary malcolm at the greater trochanter. There is no acute fracture of the proximal femur or left hemipelvis. There is no evidence of avascular necrosis of the femoral head. There is slight bone spurring at the superolateral acetabulum. Soft tissues: There is a focus of atrophy and calcification noted in the gluteus medius muscle. There is an area of atrophy of the gluteus minimus muscle. No evidence of intramuscular or soft tissue hematoma. IMPRESSION: 1. Old healed fracture of the left femur with postoperative findings. 2. No acute fracture.
--- NOTE | 2022-05-09 16:01 | PC.NURSE ---
Notified rad of additional hip CT added
== END 2022-05-09 18:15 | disposition home or self-care (01) ==
PROVIDERS: Emergency Provider Emergency Medicine; PCP Family Medicine
DX: T50.901A Poisoning by unspecified drugs, medicaments and biological substances, accidental (unintentional), initial encounter (principal); W18.30XA Fall on same level, unspecified, initial encounter; S00.03XA Contusion of scalp, initial encounter; Y92.009 Unspecified place in unspecified non-institutional (private) residence as the place of occurrence of the external cause; Z91.81 History of falling; Z79.899 Other long term (current) drug therapy; G40.909 Epilepsy, unspecified, not intractable, without status epilepticus; I25.10 Atherosclerotic heart disease of native coronary artery without angina pectoris; K21.9 Gastro-esophageal reflux disease without esophagitis; E78.5 Hyperlipidemia, unspecified; I10 Essential (primary) hypertension
CPT/HCPCS: 70450; 71045; 72125; 72170; 73700; 80053; 85025; 96365; 99285; C9803; U0003; U0005

== ENCOUNTER → 2022-11-24 23:31 | Outpatient (CLI) | payer MEDICARE, OTHER, SELFPAY ==
[2022-11-24 19:06] LABS: Basophils # 0.1 K/mm3 (0-0.2); Basophils % 1.1 % (0.1-2.0); Chloride 96 mmol/L (98-107); Eosinophils # 0.3 K/mm3 (0.0-0.4); Eosinophils % 3.4 % (0.1-12.0); Hematocrit 45.7 % (42.0-52.0); Hemoglobin 15.1 g/dL (14.1-18.0); Lymphocytes # 1.6 K/mm3 (0.7-4.5); Lymphocytes % 18.7 % (10-50); Mean Corpuscular Hemoglobin 31.6 pg (27.0-31.2); Mean Corpuscular Volume 95.9 fl (80-94); Mean Platelet Volume 9.2 fl (7.4-10.4); Monocytes # 0.6 K/mm3 (0.1-1.0); Monocytes % 7.3 % (1.7-9.3); Neutrophils # 6.1 K/mm3 (1.8-7.8); Neutrophils % 69.4 % (37.0-80.0); Platelet Count 380 K/mm3 (142-424); Red Blood Count 4.76 M/mm3 (4.60-6.20); Red Cell Distribution Width 13.1 % (11.5-17.5); White Blood Count 8.8 K/mm3 (4.8-10.8)
[2022-11-24 19:07] LABS: Potassium 3.7 mmoL/L (3.5-5.1); Sodium 138 mmol/L (136-145)
[2022-11-24 19:09] LABS: Alanine Aminotransferase 26 U/L (12-78); Alkaline Phosphatase 86 U/L (38-126); Anion Gap 15.7 mEq/L (5-15); Aspartate Amino Transferase 28 U/L (17-59); Bilirubin,Total 0.2 mg/dl (0.2-1.3); Blood Urea Nitrogen 22 mg/dl (9-20); Carbon Dioxide 30 mmol/L (22.0-30.0); Cholesterol 114 mg/dl (140-200); Estimated Glomerular Filt Rate 75 ml/min (>60); GFR (African American) 91 ML/MIN (>60); Triglycerides 67 mg/dl (30-150); VLDL Cholesterol 13 mg/dL (0-40)
[2022-11-24 19:10] LABS: Albumin Level 3.9 g/dl (3.5-5.0); Albumin/Globulin Ratio 1.6 (1.1-1.8); Calcium 9.2 mg/dl (8.4-10.2); Chol/HDL Ratio 2.4 (1-3.5); Globulin 2.5 g/dL (1.3-3.2); Glucose 80 mg/dl (74-100); HDL Cholesterol 48 mg/dl (40-60); Total Protein,Serum 6.4 g/dl (6.3-8.2)
[2022-11-24 19:23] LABS: Direct LDL Cholesterol 57.76 mg/dL (100-129)
[2022-11-29 20:04] LABS: Oxcarbazepine 38 ug/mL (10-35)
== END ==
PROVIDERS: PCP Family Medicine; Visit Provider Family Medicine
DX: Z79.899 Other long term (current) drug therapy (principal); I10 Essential (primary) hypertension; E78.2 Mixed hyperlipidemia
CPT/HCPCS: 80053; 80061; 80183; 84443; 85025

== ENCOUNTER → 2022-11-25 18:23 | Outpatient (CLI) | payer MEDICARE, OTHER, SELFPAY ==
[2022-11-25 20:02] LABS: Creatinine,Urine Random 143 mg/dL (Not Estab.)
[2022-11-25 20:05] LABS: Microalbumin < 6.000 mg/L (0-16.7)
== END ==
PROVIDERS: PCP Family Medicine; Visit Provider Family Medicine
DX: I10 Essential (primary) hypertension (principal)
CPT/HCPCS: 82043; 82570

== ENCOUNTER 2022-12-28 08:38 | Emergency (ER) | payer MEDICARE, OTHER, SELFPAY ==
--- NOTE | 2022-12-28 08:33 | ECG_ITS ---
APPROVED REPORT Exam: Resting ECG HR:78 bpm ECG Measurements Heart Rate 78 AXES MA 228 P 55 QRSd 102 QRS 30 QT 356 T 45 QTc 389 Conclusion SINUS RHYTHM WITH FIRST DEGREE AV BLOCK ABNORMAL ECG UNCONFIRMED REPORT Electronically signed by : Raul Yousif MD 12/28/2022 20:13:44
[2022-12-28 08:38] VITALS: BP 144/79; PULSE 74; RESP 19; TEMP 36.6; O2SAT 95; BMI 34.3
--- NOTE | 2022-12-28 08:41 | CT_ITS ---
FINAL REPORT TECHNIQUE: Axial images were obtained through the chest without contrast. CLINICAL HISTORY: mechanical fall r/o ptx r/o rib fx. Nonsmoker, 0 ca hx. FINDINGS: The lungs are clear. The heart size is normal. There is a coronary artery stent in the LAD artery. There is no pericardial or pleural effusion. No evidence of pneumothorax or rib fracture is seen. Limited images of the upper abdomen are remarkable for gallstones in the dependent portion of the gallbladder.. No suspicious infiltrate or nodule identified. There is a calcified granuloma in the peripheral right upper lobe. IMPRESSION: No acute process. Specifically no evidence of pneumothorax or rib fracture is present. Incidental note of gallstones in the dependent portion of the gallbladder. Reviewed, Interpreted and Dictated by Mu Dey MD Transcribed by Jennifre Hua Authenticated and [facility]
--- NOTE | 2022-12-28 08:42 | HMH.EDGENADL ---
Discharge Plan Disposition Patient Disposition: Home, Self-Care Condition: Fair Prescriptions Prescriptions: New naproxen [Naprosyn] 500 mg tablet 500 mg PO BID PRN (Reason: pain) Qty: 20 0RF No Action ondansetron HCl 4 mg tablet 4 mg PO Q8H PRN (Reason: nausea and vomiting) Qty: 20 0RF clobazam 10 mg tablet 5 mg PO BID aspirin 81 mg tablet,delayed release (DR/EC) See Rx Instructions .ROUTE .COMPLEX Qty: 90 1RF Dose Instruction: Take 1 Tablet by mouth at bedtime for circulation. Rx Instructions: Take 1 Tablet by mouth at bedtime for circulation. atorvastatin 20 mg tablet 20 mg PO HS Qty: 90 1RF lisinopril-hydrochlorothiazide 20-25 mg tablet 1 tab PO HS Qty: 90 1RF oxcarbazepine 300 MG tablet 600 mg PO BID Label Comments: TAKE 2 TABS BY MOUTH 2 TIMES DAILY. lacosamide 200 mg tablet 200 mg PO BID Referrals Follow up/Referrals: Zafar Poe MD [Primary Care Provider] - See instructions Clinical Impressions Clinical Impression: Chest wall contusion Discharge ED Provider: Jp Childs General Adult HPI General Chief complaint: Fall Stated complaint: fall Time Seen by Provider: 12/28/22 09:42 History of Present Illness HPI narrative: This is a 62-year-old white male who stated that last night he had a mechanical ground-level fall against his walker. Patient is complaining of pain in the left lateral ribs. Patient states it hurts when he takes a deep breath no cough hemoptysis no substernal chest pain patient also denies any abdominal pain or back pain. Patient describes the pain as sharp. Provoked with deep inspiration not palliated Related Data Home Medications Medication Instructions Recorded Confirmed oxcarbazepine 300 mg tablet 600 mg PO BID SEIZURES 05/21/19 11/24/22 clobazam 10 mg tablet 5 mg PO BID SEIZURES 04/29/22 11/24/22 lacosamide 200 mg tablet 200 mg PO BID SEIZURES 04/29/22 11/24/22 Previous Rx's Medication Instructions Recorded ondansetron HCl 4 mg tablet 4 mg PO Q8H PRN nausea and 04/29/22 vomiting #20 tabs aspirin 81 mg tablet,delayed See Rx Instructions .Route 08/11/22 release .COMPLEX #90 tabs atorvastatin 20 mg tablet 20 mg PO HS Cholesterol #90 tabs 11/30/22 lisinopril 20 1 tab PO HS BLOOD PRESSURE #90 tabs 12/27/22 mg-hydrochlorothiazide 25 mg tablet naproxen 500 mg tablet (Naprosyn) 500 mg PO BID PRN pain #20 tabs 12/28/22 Allergies Allergy/AdvReac Type Severity Reaction Status Date / Time No Known Allergies Allergy Verified 11/24/22 10:08 [facility] Disclaimer: The information contained in this section may have been updated after the patient was seen, as this information can be updated by other users. Medical History (Updated 12/28/22 @ 10:41 by Jp Childs MD) Accidental drug ingestion CAD (coronary artery disease) Change in mental status Diastolic dysfunction Dizziness GERD (gastroesophageal reflux disease) HHD (hypertensive heart disease) HLD (hyperlipidemia) Hypertension Hypokalemia Hyponatremia Seizure disorder Surgical History History of knee surgery Family History Other Coronary artery disease Diabetes Heart attack Social History Smoking Status: Never smoker second hand exposure: Yes alcohol intake: never substance use type: denies use current occupational status: disabled Travel in the last 8 weeks: Inside the [place] household members: other housing: other current occupational exposures/hazards: No caffeine: Yes ROS Obtained: Yes All systems reviewed & no additional complaints except as documented Skin no rash or lesions HEENT no runny nose sore throat Pulmonary no cough or shortness of breath Cardiovascular see HPI GI no abdominal pain nausea or vomiting no dys
[2022-12-28 09:00] VITALS: BP 128/65; PULSE 66; O2SAT 99
[2022-12-28 11:03] VITALS: BP 129/80; PULSE 62; RESP 16; TEMP 36.6
== END 2022-12-28 11:05 | disposition home or self-care (01) ==
PROVIDERS: Emergency Provider Emergency Medicine; PCP Family Medicine
DX: S20.212A Contusion of left front wall of thorax, initial encounter (principal); R07.1 Chest pain on breathing; I25.10 Atherosclerotic heart disease of native coronary artery without angina pectoris; I11.9 Hypertensive heart disease without heart failure; K21.9 Gastro-esophageal reflux disease without esophagitis; E78.5 Hyperlipidemia, unspecified; W01.198A Fall on same level from slipping, tripping and stumbling with subsequent striking against other object, initial encounter; R94.31 Abnormal electrocardiogram [ECG] [EKG]
CPT/HCPCS: 71250; 93005; 96372; 99284

== ENCOUNTER 2023-10-04 10:37 | Outpatient (CLI) | payer MEDICARE, OTHER, SELFPAY ==
[2023-10-04 11:05] LABS: Basophils # 0.1 K/mm3 (0-0.2); Basophils % 1.7 % (0.1-2.0); Eosinophils # 0.3 K/mm3 (0.0-0.4); Eosinophils % 3.5 % (0.1-12.0); Hematocrit 49.2 % (42.0-52.0); Hemoglobin 16.1 g/dL (14.1-18.0); Lymphocytes # 1.7 K/mm3 (0.7-4.5); Lymphocytes % 21.8 % (10-50); Mean Corpuscular HGB Conc 32.7 g/dL (31.8-35.4); Mean Corpuscular Hemoglobin 32.7 pg (27.0-31.2); Mean Corpuscular Volume 100.1 fl (80-94); Mean Platelet Volume 7.5 fl (7.4-10.4); Monocytes # 0.5 K/mm3 (0.1-1.0); Monocytes % 6.7 % (1.7-9.3); Neutrophils # 5.1 K/mm3 (1.8-7.8); Neutrophils % 66.3 % (37.0-80.0); Platelet Count 313 K/mm3 (142-424); Red Blood Count 4.91 M/mm3 (4.60-6.20); Red Cell Distribution Width 13.3 % (11.5-17.5); White Blood Count 7.7 K/mm3 (4.8-10.8)
[2023-10-04 11:47] LABS: Chloride 103 mmol/L (98-107); Potassium 4.1 mmoL/L (3.5-5.1); Sodium 140 mmol/L (136-145)
[2023-10-04 11:49] LABS: Blood Urea Nitrogen 23 mg/dl (9-20); Estimated Glomerular Filt Rate 61 ml/min (>60); GFR (African American) 74 ML/MIN (>60)
[2023-10-04 11:50] LABS: Alanine Aminotransferase 31 U/L (12-78); Alkaline Phosphatase 86 U/L (38-126); Anion Gap 8.1 mEq/L (5-15); Aspartate Amino Transferase 28 U/L (17-59); Bilirubin,Direct 0.2 mg/dl (0.0-0.4); Bilirubin,Indirect 0.1 mg/dL (0.0-0.9); Bilirubin,Total 0.3 mg/dl (0.2-1.3); Bilirubin,Unconjugated 0.1 mg/dL (0.0-1.1); Calcium 9.4 mg/dl (8.4-10.2); Carbon Dioxide 33 mmol/L (22.0-30.0); Chol/HDL Ratio 3.5 (1-3.5); Cholesterol 146 mg/dl (140-200); Glucose 103 mg/dl (74-100); HDL Cholesterol 42 mg/dl (40-60); Magnesium 1.9 mg/dl (1.6-2.3); Total Protein,Serum 6.6 g/dl (6.3-8.2); Triglycerides 144 mg/dl (30-150); VLDL Cholesterol 29 mg/dL (0-40)
[2023-10-04 12:02] LABS: Direct LDL Cholesterol 71.18 mg/dL (100-129)
[2023-10-04 12:07] LABS: Free T4 (Free Thyroxine) 0.83 ng/dl (0.78-2.19)
[2023-10-04 12:21] LABS: Thyroid Stimulating Hormone 3.43 uIU/mL (0.465-4.68)
== END 2023-10-04 23:59 ==
LOC: LAB 10:40
PROVIDERS: PCP Family Medicine; Visit Provider Physician Assistant
DX: I11.9 Hypertensive heart disease without heart failure (principal); I25.10 Atherosclerotic heart disease of native coronary artery without angina pectoris; R42 Dizziness and giddiness; E78.2 Mixed hyperlipidemia
CPT/HCPCS: 36415; 80048; 80061; 80076; 83735; 84439; 84443; 85025

== ENCOUNTER 2023-10-26 13:12 | Outpatient (CLI) | payer MEDICARE, OTHER, SELFPAY ==
--- NOTE | 2023-10-26 13:13 | CA_ITS ---
APPROVED REPORT EXAM: Comprehensive 2D, Doppler, and color-flow Echocardiogram [employer] Officer: BRITTANY Piña, RVS Ht: 5 ft 4 in Wt: 203lbs BSA: 1.97 BP: 114/52 mmHg Indications: CAD, SOB, HTN, HLD Echo Enhancing Agent Comments: Technailly limited exam due to body habitus 2D Dimensions Left Atrium 3.07 cm LA Volume 62.80 mL LA Volume Index 31.10 mL/m2 (M/F) 16-34 M-Mode Dimensions RVDd 2.40 cm (0.9-2.6) LA Diam 4.31 cm (1.9-4.0) LVDd 4.37 cm (3.5-5.7) LVDs 2.93 cm (3.5-5.7) IVSd 1.03 cm (0.6-1.1) PWd 0.87 cm (0.6-1.1) EF (Teich) 61.80% EPSs 0.95 cm FS 33.00% EDV (Teich) 86.30 mL TAPSE 1.24 (<1.7) ESV (Teich) 33.00 mL LV Diastology E Decel Time 197 (160-240 msec) E/A Ratio 1.14 MED A' 9.70 cm/s LAT A' 5.80 cm/s Aortic Valve ASHISH Index 0.94 cm2/m2 AoV Peak Ta. 181.0 (50-130 cm/s) AO Peak GR. 13.10 mmHg AO Mean GR. 5.30 (<5 mmHg) AO VTI 25.7 (18-25 cm) ASHISH (VTI) 1.89 (2.5-4.5 cm2) Mitral Valve MV A Velocity 50.0 (40-130 cm/s) E/A Ratio 1.14 Pulmonary Valve PV Peak Velocity 97.0 (50-150 cm/s) LA End VMAX 150.0 cm/s Tricuspid Valve TR P. Velocity 143.00 cm/s RAP Estimate 10.00 mmHg RVSP 18.20 mmHg Left Ventricle The left ventricle is normal size. The left ventricular systolic function is normal. The left ventricular ejection fraction is within the normal range. There is normal left ventricular wall thickness. There is normal LV segmental wall motion. The left ventricular diastolic function is normal. LVEF is 60%. Right Ventricle The right ventricle is normal size. The right ventricular systolic function is normal. Atria The left atrium size is normal. The right atrium size is normal. There is no Doppler evidence of interatrial shunt. Aortic Valve The aortic valve is mildly thickened. There is no aortic valvular stenosis. Trace aortic regurgitation. Mitral Valve The mitral valve is normal in structure. No evidence of mitral valve stenosis. Trace mitral regurgitation. Tricuspid Valve The tricuspid valve leaflets are thin and pliable. Trace tricuspid regurgitation. There is insufficient TR jet to estimate RVSP. Pulmonic Valve The pulmonary valve is normal in structure. Trace pulmonic regurgitation. Great Vessels The aortic root is normal in size. The ascending aorta is normal in size. IVC is normal in size and collapses >50% with inspiration. Pericardium There is no pericardial effusion. Other Information Study Quality: Fair Conclusion Normal biventricular systolic function. No significant valvular stenosis or regurgitation. Electronically signed by : Coco Busch MD 10/30/2023 21:52:54
== END 2023-10-26 23:59 ==
LOC: RT 13:13
PROVIDERS: PCP Family Medicine; Visit Provider Physician Assistant
DX: R42 Dizziness and giddiness (principal); I25.10 Atherosclerotic heart disease of native coronary artery without angina pectoris; I11.9 Hypertensive heart disease without heart failure; E78.2 Mixed hyperlipidemia; I10 Essential (primary) hypertension; R94.31 Abnormal electrocardiogram [ECG] [EKG]
CPT/HCPCS: 93306